=== PATIENT | male | born 1955 | race Caucasian/White ===

== ENCOUNTER → 2017-02-21 | Outpatient (CLI) | payer OTHER, BC ==
--- NOTE | 2017-02-21 09:02 | DIAGNOSTIC IMAGING REPORT ---
LEFT SHOULDER 3 VIEWS HISTORY: M25.512 Chronic left shoulder pain COMPARISON: None. FINDINGS: No acute fracture or dislocation within the left shoulder. Mild AC joint arthrosis. Mild cartilage space narrowing and small marginal osteophytes at the glenohumeral joint. Small amount of calcification the distal supraspinatus tendon. Soft tissues are unremarkable. No radiopaque foreign bodies. IMPRESSION: 1. No acute fracture or dislocation within the left shoulder. 2. Mild osteoarthritis within the left shoulder as described above. 3. Supraspinatus calcific tendinitis. Electronically signed by: Dru Pérez M.D. 02/21/2017 9:01 AM Dictated Date/Time: 02/21/2017 8:56 AM
--- NOTE | 2017-02-21 09:35 | DIAGNOSTIC IMAGING REPORT ---
CERVICAL SPINE 5 VIEWS HISTORY: M25.512 Chronic left shoulder pain [id number] COMPARISON: None. FINDINGS: The cervical spine is visualized from C1 through the superior endplate of T1. There is no fracture. No subluxation. Mild disc space narrowing at C5-C6. Mild to moderate facet osteoarthritis within the cervical spine. This is most pronounced at the C3-C4 levels. This results in [id number] bilateral neural foraminal narrowing at C3-C4. There is also mild right-sided neural foraminal narrowing at C4-C5. Prevertebral soft tissues and the atlantodens interval are intact. IMPRESSION: 1. Mild degenerative disc disease at at C5-C6. 2. Mild/moderate facet osteoarthritis within the cervical spine most pronounced at the C3-C4 levels which results in mild to moderate bilateral neural foraminal narrowing. Electronically signed by: Dru Pérez M.D. 02/21/2017 9:34 AM Dictated Date/Time: 02/21/2017 9:23 AM
== END | disposition home or self-care (01) ==
LOC: C.RADBC 08:14
PROVIDERS: ATTEND Neuromusculoskeletal Medicine & OMM
DX: M19.012 Primary osteoarthritis, left shoulder (principal); M75.32 Calcific tendinitis of left shoulder; M50.322 Other cervical disc degeneration at C5-C6 level

== ENCOUNTER 2017-03-22 14:20 | Emergency (ER) | payer OTHER ==
[~2017-03-22] VITALS: Ht 177.8 cm; Wt 98.0 kg
[2017-03-22 14:35] VITALS: TEMP 36.7; Ht 177.8 cm; Wt 98.0 kg
[2017-03-22] MEDS ORDERED: XYLOCAINE 1%/SOD BICARB 20 ML VIAL INFIL ONE (15:00)
[2017-03-22] MEDS ORDERED: DIPHTHERIA/TETANUS/PERTUSSIS 0.5 ML SYR/VIAL IM. ONE (15:00)
[2017-03-22] MEDS ORDERED: HYZ/10015 PO (15:10)
[2017-03-22] MEDS ORDERED: TRAM-10 PO (15:10)
[2017-03-22] MEDS ORDERED: MELO15TA4 PO (15:10)
[2017-03-22] MEDS ORDERED: CHOL100027 PO (15:10)
--- NOTE | 2017-03-22 16:01 | EMERGENCY ROOM VISIT NOTE ---
ED Visit Note First contact with patient: 14:44 CHIEF COMPLAINT: Left Hand laceration HISTORY OF PRESENT ILLNESS: This 61-year-old male presents the ER with chief complaint of a laceration to the palm of his left hand. The patient states that he was putting up a trash and cut his left hand on a truss [place].. The patient denies any numbness and tingling in his hand. The patient is able to move his fingers without difficulty. The patient's tetanus is not up-to-date. The patient is right-hand dominant. REVIEW OF SYSTEMS: 6 system review was performed and was negative unless stated otherwise in history of present illness. PMH: The patient is healthy; hypertension, shoulder surgery SOCIAL HISTORY: Patient denies tobacco use but admits to occasional alcohol use. PHYSICAL EXAM: Vital Signs: Were reviewed GENERAL: 61-year-old white male appears in no acute distress. MENTAL Status: Alert and oriented 3. Reviewed Nurse's notes. LEFT HAND: There is a 2 cm long laceration on the palmar aspect. The edges are gaping widely apart. There is no foreign material in the wound and it looks clean. There is no active bleeding. No deep structures such as tendons or nerves are seen in the base of the wound. Extension and flexion of the fingers is full and strong. Sensation to pain and light touch is intact. EMERGENCY DEPARTMENT COURSE: The patient was evaluated. The patient was given Adacel IM. Wound Repair: Was performed by the PA student under my direct supervision. Complexity: Basic. Verbal consent was obtained after the risks and benefits were explained, including but not limited to bleeding, scarring, infection, pain, and bone/joint /nerve damage. The skin was prepped with betadine and a sterile field set. The wound was anesthetized with 4.8 ml of 1% buffered lidocaine. With direct pressure the bleeding subsided. Copious irrigation was performed using sterile saline. The wound was explored for foreign bodies and none found. Debridement was not performed. The wound edges were approximated using 5-0 Ethilon with 4 simple interrupted sutures. Hemostasis and excellent approximation was achieved. Antibacterial ointment and a sterile dressing applied. Detailed wound care instructions and signs and symptoms of infection reviewed with the patient. No complications and the patient tolerated the procedure well. DIAGNOSIS: 2 cm left Hand laceration DISCHARGE INSTRUCTIONS & TREATMENT: Keep wound clean and dry. No water on the area for 12-24 hrs then no soaking until sutures removed. Do not allow any crusting or dried blood to accumulate on sutures. If this occurs, use a 1:1 solution of hydrogen peroxide/water on a Q-tip to clean the wound. Use an antibiotic ointment for 3-4 days, then let wound dry. Suture removal in 8 days. Follow up sooner for any signs of infection (increasing redness, swelling , drainage). Ice and elevate for swelling and pain. Tylenol 650 mg every 6 hrs for pain. Current/Historical Medications Scheduled Cholecalciferol (Vitamin D 1000 Unit), 1,000 INTER.UNIT PO DAILY Hctz/Losartan (Hyzaar 25MG/100MG), 1 TAB PO DAILY Meloxicam (Mobic), 15 MG PO DAILY Scheduled PRN Tramadol (Ultram), 50-100 MG PO QID PRN for Pain Allergies Coded Allergies: No Known Allergies (Unverified , 03/22/17) Vital Signs Date Time Temp Pulse Resp B/P (MAP) Pulse Ox O2 Delivery O2 Flow Rate FiO2 03/22/17 14:35 36.7 99 20 144/93 95 Room Air Medications Administered Medications (Trade) Dose Ordered Sig/Omi Route Start Time Stop Time Status Last Admin Dose Admin Diphtheria/ Pertussis/Tetanus Vacc (Adacel Inj) 0.5 ml ONCE ONCE IM. 03/22/17 15:00 03/22/17 15:01 DC 03/22/17 15:22 0.5 ML Departure Information Referrals Lawrence Nelson D.OWaqar (PCP) Patient Instructions [facility]
[2017-03-22 16:08] VITALS: BP 134/78; PULSE 76; O2SAT 99
== END 2017-03-22 16:10 | disposition home or self-care (01) ==
LOC: C.EDB 14:21 → C.EDD 16:10
DX: S61.412A Laceration without foreign body of left hand, initial encounter (principal); W45.8XXA Other foreign body or object entering through skin, initial encounter; Y93.89 Activity, other specified; I10 Essential (primary) hypertension; Z79.899 Other long term (current) drug therapy; Z23 Encounter for immunization

== ENCOUNTER → 2017-04-06 | Outpatient (CLI) | payer OTHER ==
[~2017-04-06] MED LIST: CHOL100027 PO; HYZ/10015 PO; MELO15TA4 PO; TRAM-10 PO
[2017-04-06 11:09] LABS: BASO % 0.5 %; BASO ABS # 0.03 K/uL (0-0.2); EOS % 2.2 %; EOS ABS # 0.13 K/uL (0-0.5); HEMATOCRIT 44.4 % (42-52); HEMOGLOBIN 15.1 g/dL (14.0-18.0); IG# 0.02 K/uL (0.00-0.02); LYMPH % 20.3 %; MEAN CELL VOLUME 89.3 fL (80-100); MEAN CORPUSCULAR HEMOGLOBIN 30.4 pg (25-34); MEAN PLATELET VOLUME 10.7 fL (7.4-10.4); MONO % 9.1 %; MONO ABS # 0.54 K/uL (0.11-0.59); NEUT % 67.6 %; PLATELET COUNT 256 K/uL (130-400); RED CELL DISTRIBUTION WIDTH CV 12.5 % (11.5-14.5); RED CELL DISTRIBUTION WIDTH SD 40.1 fL (36.4-46.3); WHITE BLOOD COUNT 5.92 K/uL (4.8-10.8)
[2017-04-06 11:35] LABS: ALBUMIN 3.8 gm/dl (3.4-5.0); ALT/SGPT 58 U/L (12-78); AST/SGOT 24 U/L (15-37); BLOOD UREA NITROGEN 18 mg/dl (7-18); CALCIUM 8.6 mg/dl (8.5-10.1); CARBON DIOXIDE 32 mmol/L (21-32); CREATININE 0.95 mg/dl (0.60-1.40); GLUCOSE 103 mg/dl (70-99); POTASSIUM 3.9 mmol/L (3.5-5.1); SODIUM 138 mmol/L (136-145)
[2017-04-06 11:38] LABS: ALKALINE PHOSPHATASE 76 U/L (45-117); CHOLESTEROL 184 mg/dl (0-200); LDL CHOLESTEROL CALCULATED 121 mg/dl; TOTAL PROTEIN 7.5 gm/dl (6.4-8.2)
== END | disposition home or self-care (01) ==
LOC: C.LABBC 08:24
PROVIDERS: ATTEND Neuromusculoskeletal Medicine & OMM
DX: Z00.00 Encounter for general adult medical examination without abnormal findings (principal); Z11.59 Encounter for screening for other viral diseases; I10 Essential (primary) hypertension; E78.5 Hyperlipidemia, unspecified; E55.9 Vitamin D deficiency, unspecified; M25.50 Pain in unspecified joint; Z91.89 Other specified personal risk factors, not elsewhere classified

== ENCOUNTER 2020-07-21 05:08 | Observation (INO) ==
--- NOTE | 2020-06-22 14:43 | PAT Medication Instructions ---
Medication Instructions Date of Service June 22, 2020 Home Medications losartan 100 mg-hydrochlorothiazide 25 mg tablet 1 tab PO QPM acetaminophen 1,000 mg PO TID cholecalciferol (vitamin D3) [Vitamin D3] 25 mcg PO QAM cyclobenzaprine 10 mg PO DAILY PRN diclofenac sodium 75 mg PO QPM fluoxetine 10 mg PO QAM glucosamine-chondroitin 2 tab PO QAM multivitamin 1 tab PO QPM ASK your surgeon for instructions diclofenac sodium 75 mg PO QPM STOP taking 2 weeks before surgery (or as soon as possible if surgery is within 2 weeks) glucosamine-chondroitin 2 tab PO QAM DO NOT take the morning of surgery cholecalciferol (vitamin D3) [Vitamin D3] 25 mcg PO QAM cyclobenzaprine 10 mg PO DAILY PRN multivitamin 1 tab PO QPM Take morning of surgery With a small sip of water, OTHERWISE NOTHING TO EAT OR DRINK AFTER MIDNIGHT: acetaminophen 1,000 mg PO TID (okay to take up to 4 hours prior to surgery if needed) fluoxetine 10 mg PO QAM Take evening before surgery losartan 100 mg-hydrochlorothiazide 25 mg tablet 1 tab PO QPM acetaminophen 1,000 mg PO TID cyclobenzaprine 10 mg PO DAILY PRN (if needed) multivitamin 1 tab PO QPM Other Notes If you have any questions please call us at [phone] or [phone] or [phone] or [phone]
--- NOTE | 2020-06-22 14:46 | Anesthesiology Consultation ---
Date of Service June 22, 2020 Assessment & Plan (1) Encounter for pre-operative examination: COVID screening: Per assessment on 06/22: Travel screen negative, no known COVID- 19 positive contacts or current COVID-19 related symptoms. Patient fully vaccinated. Surgeon arranging preop COVID testing. Awaiting results. Chart Review Chart Review: Acceptable Risk for Surgery and Patient seen in Pre Admission Testing Teaching & Discussion Pre-Anesthesia Teaching/Discussion Notes: Instructed NPO after midnight before surgery,except medications with 15 cc of water. Medication instructions provided according to the PAT guidelines. History Surgery Operation Date: 07/21/20 07:15 Proposed Procedures p Left Total Hip Arthroplasty - Marko Tabares MD Height/Weight Height: 5 ft 10 in Weight: 95.1 kg Allergies Allergy/AdvReac Type Severity Reaction Status Date / Time No Known Allergies Allergy Unverified 06/21/20 09:07 Medications Home Medications Medication Instructions Recorded Confirmed Last Taken losartan 100 1 tab PO QPM 01/18/19 06/21/20 Unknown mg-hydrochlorothiazide 25 mg tablet acetaminophen 1,000 mg PO TID 06/21/20 06/21/20 Unknown cholecalciferol (vitamin D3) 25 mcg PO QAM 06/21/20 06/21/20 Unknown [Vitamin D3] cyclobenzaprine 10 mg PO DAILY PRN 06/21/20 06/21/20 Unknown diclofenac sodium 75 mg PO QPM 06/21/20 06/21/20 Unknown fluoxetine 10 mg PO QAM 06/21/20 06/21/20 Unknown glucosamine-chondroitin 2 tab PO QAM 06/21/20 06/21/20 Unknown multivitamin 1 tab PO QPM 06/21/20 06/21/20 Unknown Past Medical History Medical History Hearing deficit slight (R/L) History of melanoma face s/p excision Hypertension Osteoarthritis Exercise / Class Metabolic Activity II 4-5 Yardwork/Stairs/Walk up hill Past Family History Family History Grandfather Myocardial infarction Father Prostate cancer Heart disease Hypertension Denies family history of Ovarian cancer Breast cancer Colorectal cancer Past Surgical History Surgical History History of colonoscopy History of tonsillectomy S/P shoulder surgery Right shoulder reconstruction x5 Past Anesthesia History No Hx of Anesthesia Complications and No Family Hx of Anesthesia Complications History of PONV No Hx of PONV and No Hx of Motion Sickness Social History Smoking Status: Never smoker Do You Dip or Chew Tobacco: No Hx Alcohol Use: Yes Alcohol type: beer and wine alcohol intake frequency: a few times a week Hx Substance Use: No substance use type: does not use Review of Systems Occasional snoring. No witnessed apnea events. Patient denies chest pain, shortness of breath, dyspnea on exertion, fever, chills, cough, wheezing, palpitations. Physical Exam Vital Signs VITALS BP 160/92 P 77 TEMP 98.6 SP02 97%RA RESP 16 PHYSICAL Mildly decrased cervical extension range of motion. Full TMJ range of motion. TMD 3 finger breaths Mallampati Score 3 Dentition: several missing, + bridge (upper right side) Lungs: clear throughout to auscultation Cardiac: regular rate and rhythm, no murmurs noted Spine: normal Carotid arteries: negative bruit Extremities: no edema Testing Laboratory Results 06/22/20 15:15 06/22/20 15:15 PT 10.3 Seconds (9.0-12.0) 06/22/20 15:15 INR 1.0 (0.9-1.1) 06/22/20 15:15 APTT 27.1 Seconds (21.0-31.0) 06/22/20 15:15 Blood Type B Positive 06/22/20 15:15 Antibody Screen NEGATIVE 06/22/20 15:15 Electrocardiogram Date: 06/22/20 Normal sinus rhythm at 70 bpm. Incomplete RBBB. Chest X-Ray Date: 06/22/20 FINDINGS: Cardiac mediastinal and hilar silhouettes are within normal limits. No pneumothorax, pleural effusion, airspace consolidation or overt pulmonary edema. Spondylitic spurring of the spine. IMPRESSION: No acute process.
--- NOTE | 2020-06-22 15:42 | XRay Report ---
XR chest Pre-admission PA/Lat HISTORY: 65 years-old Male pat chronic degenerative joint disease. COMPARISON: None TECHNIQUE: PA and lateral views of the chest FINDINGS: Cardiac mediastinal and hilar silhouettes are within normal limits. No pneumothorax, pleural effusion , airspace consolidation or overt pulmonary edema. Spondylitic spurring of the spine. IMPRESSION: No acute process. ACT 112: Negative or not required by law. The above report was generated using voice recognition software. It may contain grammatical, syntax o r spelling errors. Electronically signed by: Will Benoit M.D. 06/22/2020 3:41 PM
[2020-06-22 16:11] LABS: Basophils # (auto) 0.02 K/uL (0-0.2); Basophils % (auto) 0.4 %; Eosinophils # (auto) 0.12 K/uL (0-0.5); Eosinophils % (auto) 2.4 %; Hemoglobin 14.1 g/dL (14.0-18.0); Immature Granulocytes # (auto) 0.01 K/uL (0.00-0.02); Immature Granulocytes % (auto) 0.2 %; Lymphocytes # (auto) 0.86 K/uL (1.2-3.4); Mean Corpuscular Hemoglobin 29.6 pg (25-34); Mean Corpuscular Hgb Conc 33.6 g/dL (32-36); Mean Corpuscular Volume 88.2 fL (80-100); Mean Platelet Volume 10.7 fL (7.4-10.4); Monocytes # (auto) 0.66 K/uL (0.11-0.59); Neutrophils # (auto) 3.39 K/uL (1.4-6.5); Platelet Count 257 K/uL (130-400); Red Blood Count 4.76 M/uL (4.7-6.1); White Blood Count 5.06 K/uL (4.8-10.8)
[2020-06-22 16:33] LABS: Partial Thromboplastin Time 27.1 Seconds (21.0-31.0); Prothrombin Time 10.3 Seconds (9.0-12.0)
[2020-06-22 16:55] LABS: BUN Creatinine Ratio 19.4 (10-20); Calcium 8.3 mg/dl (8.5-10.1); Creatinine Clr Calc Pharmacy 110.7 ml/min; Est GFR (African American) 110.2; Est GFR (Non-African American) 95.1; Potassium 3.9 mmol/L (3.5-5.1)
--- NOTE | 2020-06-23 06:52 | Electrocardiogram Report ---
Test Reason : Blood Pressure : / mmHG Vent. Rate : 070 BPM Atrial Rate : 070 BPM P-R Int : 164 ms QRS Dur : 106 ms QT Int : 392 ms P-R-T Axes : 061 000 059 degrees QTc Int : 423 ms Normal sinus rhythm Incomplete right bundle branch block Borderline ECG No previous ECGs available Confirmed by Gama Bardales ([id number]) on 06/23/2020 6:52:15 AM Referred By: Marko Tabares Confirmed By:Gama Bardales
--- NOTE | 2020-07-15 21:13 | History and Physical Report ---
DATE OF ADMISSION: 07/21/2020 CHIEF COMPLAINT: Left hip pain. 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 He has got about a 15-month history of increasing left hip pain and discomfort that has gradually gotten worse over time. No particular injury. He felt this first when he was cleaning his attic. He felt he pulled a groin muscle, but never got better. He has been followed and treated by Dr. Petit, he is one of his clients. He has recommended surgery and he now presents for surgical treatment. He has had a couple of cortisone shots, which provided temporary relief only. He has difficulty putting his shoes and socks on. 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 He would like to have his hip fixed. PAST MEDICAL HISTORY: Significant for hypertension. PAST SURGICAL HISTORY: Previous surgeries include multiple surgeries for some AC joint problems. ALLERGIES: None. CURRENT MEDICINES: Include, 1. Tylenol. 2. Diclofenac. 3. Losartan/hydrochlorothiazide. 4. Cosamin DS. 5. Vitamin D. 6. Voltaren. SOCIAL HISTORY: A 65-year-old male. He lives here in [place]. 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 He is . Two drinks per week. Does not smoke. FAMILY HISTORY: Significant for heart disease and diabetes. REVIEW OF SYSTEMS: Negative for diabetes, neurologic problem, vascular problems or bleeding disorders. No chest pain or shortness of breath. No history of DVT or PE. PHYSICAL EXAMINATION: GENERAL: Shows a pleasant, healthy, middle-aged male, looks to be in good health. HEENT: Benign. NECK: Supple, no lymphadenopathy. LUNGS: Clear to auscultation. HEART: Has a regular rate and rhythm. ABDOMEN: Soft, nontender, nondistended. EXTREMITIES: Grossly neurovascularly intact except as follows: Examination of the left hip revealed patient walks with an antalgic gait. He is about 0.5 cm short on the left side compared to the right. He has got marked pain with any type of hip motion. He can internally rotate to neutral and that is it. Negative straight leg raise. Examination of the knee reveals a slight knee effusion. He has got some bony hypertrophy. No tenderness over the medial joint line. X-RAYS: X-rays of the left hip were reviewed. It shows advanced left hip DJD. He has got complete loss of the superior joint space. He has got flattening of his femoral head and cystic changes on both sides of the joint. This has progressed significantly over the past 6 months. 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 He has failed conservative treatment. Clinically and radiographically, this has progressed significantly over the past 6 months. He would like to have his hip fixed. PLAN: We will take him to the operating room and do a left total hip replacement. The risks and benefits of this procedure were explained to the patient including but not limited to DVT, PE, , infection, neurological injury, vascular injury, bleeding problem, pain, limited range of motion, stiffness, failure to relieve his symptoms, incomplete relief of symptoms, need for further surgery in the future, fracture, leg length inequality, need for blood transfusion, etc. The patient understands and desires to proceed. Informed consent was obtained. He did see his medical doctor, Dr. Mcneil, and he has been cleared for surgery. He is planning to be discharged to home using [facility] home health program.
[2020-07-21] MEDS ORDERED: ceFAZolin 2000MG 2,000 MG/15 ML SYR IV SCH (06:00)
[2020-07-21] MEDS ORDERED: METOCLOPRAMIDE HCL 10 MG TABLET PO SCH (06:00)
[2020-07-21] MEDS ORDERED: TRANEXAMIC ACID 1,000 MG **IV Pre-op IV SCH (06:00)
[2020-07-21] MEDS ORDERED: FAMOTIDINE 20 MG TAB PO SCH (06:00)
[2020-07-21] MEDS ORDERED: LR 60ML/HR IV SCH (06:00)
[2020-07-21] MEDS ORDERED: ACETAMINOPHEN 500 MG TAB PO SCH (06:00)
[2020-07-21] MEDS ORDERED: GABAPENTIN 300 MG CAP PO SCH (06:00)
[2020-07-21] MEDS ORDERED: LR 500ML BOLUS, THEN 15ML/HR IV SCH (06:00)
[2020-07-21] MEDS ORDERED: BUPIVACAINE 0.5 % 5 MG/1 ML PF 10ML VIAL ONE (06:31)
[2020-07-21] MEDS ORDERED: BUPIVACAINE 0.25% 30 ML VIAL ONE (06:32)
[2020-07-21] MEDS ORDERED: ATROPINE SULFATE 0.1 MG/ML 10ML SYR IV PRN (06:37)
[2020-07-21] MEDS ORDERED: ONDANSETRON INJ 2 MG/ML 2 ML VIAL IV PRN ×3 (06:37→10:09)
[2020-07-21] MEDS ORDERED: fentaNYL citrate 100 MCG/2 ML VIAL IV PRN (06:37)
[2020-07-21] MEDS ORDERED: ePHEDrine sulfate 50 MG/ML AMP IV PRN ×2 (06:37→06:46)
[2020-07-21] MEDS ORDERED: PROMETHAZINE HCL 12.5 MG in SODIUM CHLORIDE 0.9% 50 ML IV PRN (06:46)
[2020-07-21] MEDS ORDERED: PROPOFOL IV EMULSION 10 MG/ML 20 ML VIAL IV ONE (06:46)
[2020-07-21] MEDS ORDERED: PHENYLEPHRINE 100MCG/ML 5ML SYR ONE (06:46)
[2020-07-21] MEDS ORDERED: LIDOCAINE HCL 2% 2 ML VIAL/AMP(20MG/ML) INFIL ONE (06:46)
[2020-07-21] MEDS ORDERED: NALOXONE HCL 0.08 MG in SYRINGE 1.8 ML IV PRN (06:46)
[2020-07-21] MEDS ORDERED: HYDROmorphone INJ 0.5 MG/0.5 ML SYR IV PRN ×2 (06:46→10:09)
[2020-07-21] MEDS ORDERED: diphenhydrAMINE 50 MG/ML VIAL IV PRN (06:46)
[2020-07-21] MEDS ORDERED: MoRPHine SULFATE PF 1 MG/ML 10 ML AMP/VIAL INT SPINAL ONE (06:46)
[2020-07-21] MEDS ORDERED: LACTATED RINGER'S 500 ML IV PRN (06:46)
[2020-07-21] MEDS ORDERED: NALOXONE HCL 1 MG in SODIUM CHLORIDE 0.9% 1000ML 1,000 ML IV PRN (06:46)
[2020-07-21] MEDS ORDERED: MEPERIDINE HCL 25 MG/ML CARP/VIAL IV PRN (06:46)
[2020-07-21] MEDS ORDERED: ePHEDrine sulfate 50 MG/ML SYR ONE (06:46)
[2020-07-21] MEDS ORDERED: NALOXONE HCL 0.4 MG/1 ML VIAL/CARP IV PRN ×2 (06:46→10:09)
[2020-07-21] MEDS ORDERED: MIDAZOLAM HCL 1 MG/ML 2ML VIAL ONE ×2 (06:47)
[2020-07-21] MEDS ORDERED: fentaNYL citrate 100 MCG/2 ML VIAL ONE (06:47)
--- NOTE | 2020-07-21 06:55 | History & Physical Bridge Note ---
Date of Service July 21, 2020 History & Physical Bridge Note I have examined the patient, reviewed the History & Physical and in the interval since the performance of the History & Physical I have noted the following changes of clinical significance: no changes noted
[2020-07-21] MEDS ORDERED: BUPIVACAINE/EPINEPHRINE 0.5% MPF 1:200,000 30 ML VIAL ONE (06:59)
[2020-07-21] MEDS ORDERED: SODIUM CHLORIDE 0.9% 1000ML 1,000 ML IV SCH (07:00)
[2020-07-21] MEDS ORDERED: NO NARCOTICS OR SEDATIVES SCH (07:00)
[2020-07-21] MEDS ORDERED: DC INTRASPINAL MORPHINE SCH (07:00)
--- NOTE | 2020-07-21 09:07 | Operative Report ---
Post Operative Report Pre & Post Diagnosis Operation Date: 07/21/20 07:15 Pre-Op Diagnosis: Left Hip Osteoarthritis Post-Op Diagnosis: Left Hip Osteoarthritis I identified the patient and participated in the time-out.: Yes Procedure Operation Date: 07/21/20 07:15 Actual Procedures p Left Total Hip Arthroplasty(Left) - Marko Tabares MD Surgeon Marko Tabares MD Agricultural Equipment Sales Engineer VITALY Hurtado Estimated Blood Loss 200 Findings Consistent with Post-Op Diagnosis Operative findings were advanced left hip DJD. Grade 4 tuvy-bj-deer disease of the femoral head and acetabulum with some collapse of the femoral head. Moderate-sized joint effusion. He had osteophytes on both sides of the joint. Moderate synovitis. Fluids 2000 cc Specimens Left femoral head sent for pathology. Drains None. 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 X-rays show pro gressive hip arthritis and collapse of the femoral head. He failed all conservative measures and elected proceed with total hip arthroplasty. Description of Procedure Operative implants consisted of: 1. Biomet G7 size 56 mm acetabular shell. 2. 6.5 cancellous acetabular screws 135 mm length 125 mm length. 3. Skipwith hole hospice chaplain. 4. Highly cross-linked polyethylene liner with a 56 mm outer diameter, 36 mm diameter with a landry placed inferior and posterior. 5. Philo Karaya size 11 KLA femoral stem. 6. +5/36 mm ceramic articular ball. The patient was taken to the operating, identified, placed on the operating table supine position but a contractors were properly padded. IV antibiotics tried by anesthesia team. A spinal anesthetic been implemented holding area. Zelaya cath was placed in sterile fashion. Patient then placed in the right lateral decubitus position. Axillary roll was placed. Stulberg hip positioner was used for positioning. The left hip and leg were then prepped and draped in usual sterile fashion. A posterior lateral approach to the left hip was then performed to a curvilinear incision centered over the greater trochanter. Sharp dissection got through subcutaneous tissue down to the IT band gluteal fascia the IT band gluteal fascia incised longitudinally in line with skin incision. The underlying great er bursa was excised. Piriformis and external rotators were tagged and taken off the posterior aspect hip joint capsule. Great care was taken throughout the procedure to protect the sciatic nerve at all times. Posterior capsulotomy was then performed leaving a large flap for later repair. Hip was internally rotated and dislocated. Femoral neck osteotomy cut was made with Final Cut about 10 mm above the lesser trochanter. Femoral head was removed and sent for pathology. The femur was retracted anteriorly. Attention drawn the acetabulum. The acetabular labrum was excised. The pulmonary fat was excised. Sequential reaming the acetabular was then performed begin with a size 47 and progressed up to a 55. I did reamed a little bit with a 56 reamer. A 56 mm Biomet G7 acetabular shell was then placed in about 40 degrees lateral opening and 20 degrees of anteversion. Was fixed with two 6.5 cancellous acetabular screws. Some anterior osteophytes were removed. A trial liner was placed. Attention drawn the femur. The proximal femur was entered with a cookie-cutter followed by canal finder. I then broached begin the size 8 and progressed up to 11. He had a very good cancellous bone structure. It is possible he could have broached a little bit more but I felt his cancellous bone was very supportive and did not need to further broaching. The calcar reamer was used smooth and off the calcar. Then trialed the hip and the +5 articular ball recreated leg lengths appropriate, soft tissue tension appropriately, and was stable in full extension and external rotation flexion to 9 degrees internal rotation of 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 Attention drawn toward placing the permanent implants. All trial implants were removed. An apex hole hospice chaplain was placed but highly cross-linked polyethylene liner was placed. I did place a liner with a landry placed inferior and posterior. A DePuy size 11 KLA femoral stem was impacted in position. +5/36 mm ceramic articular ball was placed and hip was located. Hip was stable. Attention drawn toward closing. The wound was irrigated cups ounce of pulsatile lavage solution. I did inject locally with 60 cc of half percent Marcaine with epinephrine. The posterior capsule and external rotators then repaired through drill holes in the posterior trochanter with #2 Tycron suture. The IT band gluteal fascia then closed with #1 PDS suture running fashion. Subcutaneous tissues were then closed in 2 layers with a deep layer #1 Vicryl suture subcutaneous tissues with 2-0 Dexon suture in a buried interrupted fashion for skin was closed skin malathi. Leg was then cleaned dried and a sterile dressing both Xeroform, 4 x 4's, ABD pad, foam tape was applied. Patient then transferred to the recovery room in stable condition. Patient tolerated procedure well and there were no complications. Willy Hurtado, my physician document control assistant, was present for the entire procedure. His assistance was essential and required for appropriate patient positioning, prepping and draping, surgical exposure, performing the technical details of the operation, placement the implants, closure of the wound, and placement of the sterile bandage. I attest to the content of the Intraoperative Record and any orders documented therein. Any exceptions are noted below.
--- NOTE | 2020-07-21 09:34 | XRay Report ---
XR hip 1V LT w pelvis HISTORY: 65 years-old Male IN PACU - A/P PELVIS and LATERAL HIP left hip total joint arthroplasty COMPARISON: Hip radiographs 06/02/2020 TECHNIQUE: AP view of the pelvis with crosstable lateral view of the left hip FINDINGS: Mild to moderate right hip osteoarthritis. Left hip total joint arthroplasty. Lateral skin malathi ar e noted along with expected postsurgical soft tissue swelling and deep tissue air. No acute fracture or unexpected opaque foreign body. IMPRESSION: Left hip total joint arthroplasty with expected postoperative changes. ACT 112: Negative or not required by law. The above report was generated using voice recognition software. It may contain grammatical, syntax o r spelling errors. Electronically signed by: John Benoit M.D. 07/21/2020 9:33 AM
[2020-07-21] MEDS ORDERED: TAMSULOSIN HCL 0.4 MG CAP PO PRN (10:09)
[2020-07-21] MEDS ORDERED: MULTIVITAMIN TAB PO SCH (10:09)
[2020-07-21] MEDS ORDERED: bisacodyL 10 MG SUPP PR PRN (10:09)
[2020-07-21] MEDS ORDERED: MAGNESIUM HYDROXIDE SUSP 30 ML UDC PO PRN (10:09)
[2020-07-21] MEDS ORDERED: ALUMINUM/MAGNESIUM SUSP 30 ML UDC PO PRN (10:09)
[2020-07-21] MEDS ORDERED: traMADol HCL 50 MG TABLET PO PRN (10:09)
[2020-07-21] MEDS ORDERED: METOCLOPRAMIDE HCL INJ 5 MG/ML 2 ML VIAL IV PRN (10:09)
[2020-07-21] MEDS: ASPIRIN 81 MG ECTAB PO SCH ×2 (12:09→20:05)
[2020-07-21] MEDS: SODIUM CHLORIDE 0.9% 1000ML 1,000 ML IV SCH ×2 (12:10→21:51)
[2020-07-21] MEDS: DOCUSATE SODIUM 100 MG CAP PO SCH ×2 (12:10→20:09)
[2020-07-21] MEDS ORDERED: FLUoxetine HCL 10 MG CAP PO PRN (12:51)
--- NOTE | 2020-07-21 13:22 | Anesthesiology Progress Note ---
Date of Service July 21, 2020 Anesthesia Post Procedure Vital Signs Vital Signs: Temp Pulse Pulse Pulse Resp BP BP 07/21/20 12:56 36.5 C 84 16 150/84 H 07/21/20 11:58 36.5 C 74 16 136/84 07/21/20 10:50 16 07/21/20 10:47 36.8 C 68 16 163/101 H 07/21/20 10:17 36.1 C L 71 18 166/92 H 07/21/20 09:43 36.4 C L 67 16 143/81 H 07/21/20 09:25 66 14 121/68 07/21/20 09:15 36.4 C L 71 14 119/70 07/21/20 09:05 73 14 118/64 07/21/20 08:55 76 14 113/66 07/21/20 08:47 36.2 C L 80 14 106/64 07/21/20 05:52 36.8 C 76 18 152/94 H Pulse Ox 07/21/20 12:56 96 07/21/20 11:58 97 07/21/20 10:50 97 07/21/20 10:47 100 07/21/20 10:17 100 07/21/20 09:43 99 07/21/20 09:25 99 07/21/20 09:15 96 07/21/20 09:05 100 07/21/20 08:55 99 07/21/20 08:47 100 07/21/20 05:52 99 Pain Intensity Left Knee: Pain Intensity: 8 Transfer of Care Handoff Completed per policy Notes Mental Status: alert / awake / arousable and participated in evaluation Patient Amnestic to Procedure: Yes Nausea / Vomiting: adequately controlled Pain: adequately controlled Airway Patency, RR, SpO2: stable & adequate BP & HR: stable & adequate Hydration State: stable & adequate Neuraxial Anesthesia: was administered and sensory block is resolving Anesthetic Complications: no major complications apparent and Pt Satisfied with anesthetic care
[2020-07-21] MEDS: KETOROLAC TROMETHAMINE 15 MG/ML VIAL IV SCH ×2 (14:07→18:48)
[2020-07-21] MEDS: ceFAZolin 2000MG 2,000 MG/15 ML SYR IV SCH ×2 (14:07→21:47)
[2020-07-21] MEDS: ACETAMINOPHEN 500 MG TAB PO SCH ×2 (14:07→20:06)
[2020-07-21] MEDS ORDERED: TRANEXAMIC ACID / 0.7% NACL 1,000 MG/100 ML BAG IV SCH (14:55)
[2020-07-21] MEDS: ASCORBIC ACID 500 MG TAB PO SCH (17:23)
[2020-07-21] MEDS: SENNA 8.6 MG TAB PO SCH (20:04)
[2020-07-21] MEDS: MULTIVITAMIN TAB PO SCH (20:05)
[2020-07-21] MEDS: LOSARTAN/HCTZ 50/12.5MG TAB PO SCH (20:05)
[2020-07-22] MEDS: KETOROLAC TROMETHAMINE 15 MG/ML VIAL IV SCH ×4 (01:10→18:57)
[2020-07-22 05:53] LABS: Basophils # (auto) 0.01 K/uL (0-0.2); Basophils % (auto) 0.1 %; Eosinophils # (auto) 0.08 K/uL (0-0.5); Hematocrit (blood only) 35.1 % (42-52); Hemoglobin 11.4 g/dL (14.0-18.0); Immature Granulocytes # (auto) 0.01 K/uL (0.00-0.02); Immature Granulocytes % (auto) 0.1 %; Lymphocytes # (auto) 1.15 K/uL (1.2-3.4); Lymphocytes % (auto) 14.1 %; Mean Corpuscular Hemoglobin 29.2 pg (25-34); Mean Corpuscular Hgb Conc 32.5 g/dL (32-36); Mean Corpuscular Volume 89.8 fL (80-100); Mean Platelet Volume 10.1 fL (7.4-10.4); Monocytes # (auto) 1.16 K/uL (0.11-0.59); Monocytes % (auto) 14.2 %; Neutrophils # (auto) 5.75 K/uL (1.4-6.5); Neutrophils % (auto) 70.5 %; Platelet Count 201 K/uL (130-400); RDW Standard Deviation 42.6 fL (36.4-46.3); Red Blood Count 3.91 M/uL (4.7-6.1); White Blood Count 8.16 K/uL (4.8-10.8)
[2020-07-22 06:18] LABS: Calcium 7.9 mg/dl (8.5-10.1); Creatinine Clr Calc Pharmacy 115.4 ml/min; Est GFR (African American) 112.7 ml/min; Est GFR (Non-African American) 97.2 ml/min; Potassium 3.4 mmol/L (3.5-5.1)
--- NOTE | 2020-07-22 07:13 | Orthopedic Progress Note ---
Date of Service July 22, 2020 Assessment & Plan (1) Status post total hip replacement, left: He was seen and examined by Dr. Tabares. Continue PT/OT. WBAT. total hip precautions. Contnue dvt prophylaxis. We will see how he does with PT today and possibly discharge home today with home health. Subjective .POD #1 from left FROY. He's doing pretty well. Pain is about 2 or 3 out of 10. No chest pain or shortness of breath. Review of Systems All systems reviewed & are unremarkable except as noted in HPI & below. Physical Exam .Alert and oriented. NAD. VSS Left leg: well aligned. Able to dorsiflex and planarflex. NVI. Hip located. Results & Data Results & Data Laboratory Results . Diagnostic Findings . PG Care Time/CCT Total # of Minutes Spent Total Time Spent with Patient: Total time spent is greater than 50% in coordination of care (as documented) at patient's floor/unit and/or counseling patient: Coding Level of Care Code 81375 Post Operative Follow-Up Diagnoses Status post total hip replacement, left Z96.642
[2020-07-22] MEDS ORDERED: POTASSIUM CHLORIDE CRTAB 20 MEQ TABCR PO ONE (07:26)
[2020-07-22] MEDS ORDERED: dexAMETHasone 4 MG TAB PO SCH (08:00)
[2020-07-22] MEDS: ASPIRIN 81 MG ECTAB PO SCH ×2 (08:09→20:23)
[2020-07-22] MEDS: DOCUSATE SODIUM 100 MG CAP PO SCH ×2 (08:09→20:33)
[2020-07-22] MEDS: CHOLECALCIFEROL 1,000 UNITS 25 MCG TAB PO SCH (08:09)
[2020-07-22] MEDS: ACETAMINOPHEN 500 MG TAB PO SCH ×3 (08:09→20:22)
[2020-07-22] MEDS: ASCORBIC ACID 500 MG TAB PO SCH ×2 (08:09→17:18)
[2020-07-22] MEDS ORDERED: CYCLOBENZAPRINE HCL 10 MG TAB PO PRN (09:00)
[2020-07-22] MEDS: LOSARTAN/HCTZ 50/12.5MG TAB PO SCH (20:15)
[2020-07-22] MEDS: MULTIVITAMIN TAB PO SCH (20:15)
[2020-07-22] MEDS: SENNA 8.6 MG TAB PO SCH (20:23)
[2020-07-23] MEDS: KETOROLAC TROMETHAMINE 15 MG/ML VIAL IV SCH ×2 (02:08→06:36)
[2020-07-23 06:10] LABS: BUN Creatinine Ratio 24.1 (10-20); Calcium 8.7 mg/dl (8.5-10.1); Creatinine Clr Calc Pharmacy 112.2 ml/min; Est GFR (African American) 111.4 ml/min; Est GFR (Non-African American) 96.1 ml/min; Potassium 3.7 mmol/L (3.5-5.1)
--- NOTE | 2020-07-23 07:40 | Progress Notes ---
DATE: 07/23/2020 SUBJECTIVE: A 65-year-old gentleman postop day 2 from left hip replacement. He is doing quite a bit better this morning. He has got up in the middle of the night and took a walk. No chest pain or shortness of breath. Not feeling dizzy or lightheaded. OBJECTIVE: VITAL SIGNS: Temperature 36.7. Vital signs stable. GENERAL: Shows a pleasant, middle-aged male. I had to wake him this morning. EXTREMITIES: Examination of the left hip reveals the dressing to be clean, dry and intact. Minimal swelling. Thigh is soft and supple. Leg lengths are equal. Hip is located. He is neurologically intact. ASSESSMENT: A 65-year-old gentleman postoperative day 2 from left hip replacement, doing better. Pain is controlled. Hip is located. He is neurologically intact. PLAN: 1. DVT prophylaxis including thigh-high TEDs, SCDs, and aspirin twice a day. 2. PT/OT. Weight bear as tolerated. Left total hip protocol. 3. Pain control, doing well with current pain regimen. 4. Disposition: Plan to discharge to home after therapy this morning with some home health.
[2020-07-23] MEDS: ACETAMINOPHEN 500 MG TAB PO SCH (09:05)
[2020-07-23] MEDS: CHOLECALCIFEROL 1,000 UNITS 25 MCG TAB PO SCH (09:05)
[2020-07-23] MEDS: DOCUSATE SODIUM 100 MG CAP PO SCH (09:05)
[2020-07-23] MEDS: ASPIRIN 81 MG ECTAB PO SCH (09:05)
[2020-07-23] MEDS: ASCORBIC ACID 500 MG TAB PO SCH (09:05)
== END 2020-07-23 12:00 | disposition home health service (06) ==
LOC: ASU 05:08 → 3E 05:08
DX: Z79.899 Other long term (current) drug therapy; I10 Essential (primary) hypertension; Z20.822 Contact with and (suspected) exposure to COVID-19; M16.12 Unilateral primary osteoarthritis, left hip

== ENCOUNTER 2021-10-04 08:12 | Observation (INO) ==
--- NOTE | 2021-09-07 14:29 | PAT Medication Instructions ---
Medication Instructions Date of Service September 07, 2021 Home Medications Medication Instructions Recorded amoxicillin 500 mg tablet 2,000 mg PO ONCE #4 tab 10/14/20 losartan 100 mg-hydrochlorothiazide 25 mg tablet 1 tab PO HS acetaminophen 500 mg tablet 1,000 mg PO TID MDD pain cholecalciferol (vitamin D3) 25 mcg (1,000 unit) tablet (Vitamin D3) 25 mcg PO HS glucosamine-chondroitin 750 mg-600 mg tablet 1 tab PO HS multivitamin 1 tab PO HS amoxicillin 500 mg tablet 2,000 mg PO ONCE ibuprofen 200 mg tablet 200 mg PO Q6H PRN Continue as directed amoxicillin 500 mg tablet 2,000 mg PO ONCE (if needed prior to dental work) ASK your surgeon for instructions ibuprofen 200 mg tablet 200 mg PO Q6H PRN STOP taking 2 weeks before surgery (or as soon as possible if surgery is within 2 weeks) glucosamine-chondroitin 750 mg-600 mg tablet 1 tab PO HS Take morning of surgery With a small sip of water, OTHERWISE NOTHING TO EAT OR DRINK AFTER MIDNIGHT: acetaminophen 500 mg tablet 1,000 mg PO TID MDD pain (if needed) Take evening before surgery losartan 100 mg-hydrochlorothiazide 25 mg tablet 1 tab PO HS acetaminophen 500 mg tablet 1,000 mg PO TID MDD pain (if needed) cholecalciferol (vitamin D3) 25 mcg (1,000 unit) tablet (Vitamin D3) 25 mcg PO HS multivitamin 1 tab PO HS Other Notes If you have any questions please call us at [phone] or [phone] or [phone] or [phone]
--- NOTE | 2021-09-09 10:37 | Anesthesiology Consultation ---
Date of Service September 09, 2021 Assessment & Plan (1) Encounter for pre-operative examination: - COVID screening: Per assessment on 09/09: No known COVID-19 positive contacts or current COVID-19 related symptoms. Travel screen- negative x2+ weeks. Patient vaccinated. Surgeon arranging preop COVID testing. Awaiting results. - S/P Left FROY (07/21/20): SAB at [facility] Chart Review Chart Review: Acceptable Risk for Surgery and Patient seen in Pre Admission Testing Teaching & Discussion Pre-Anesthesia Teaching/Discussion Notes: Instructed NPO after midnight before surgery,except medications with 15 cc of water. Medication instructions provided according to the PAT guidelines. History Surgery Operation Date: 10/04/21 12:30 Proposed Procedures p Right Total Knee Replacement - Marko Tabares MD Height/Weight Height: 5 ft 10 in Weight: 99.2 kg Allergies Allergy/AdvReac Type Severity Reaction Status Date / Time No Known Allergies Allergy Verified 09/07/21 13:21 Medications Home Medications Medication Instructions Recorded Confirmed Last Taken losartan 100 1 tab PO HS 01/18/19 09/07/21 07/20/20 21:00 mg-hydrochlorothiazide 25 mg tablet acetaminophen 500 mg tablet 1,000 mg PO TID MDD pain 06/21/20 09/07/21 07/20/20 21:00 cholecalciferol (vitamin D3) 25 25 mcg PO HS 06/21/20 09/07/21 06/14/20 08:00 mcg (1,000 unit) tablet (Vitamin D3) glucosamine-chondroitin 750 mg-600 1 tab PO HS 06/21/20 09/07/21 06/13/20 20:00 mg tablet multivitamin 1 tab PO HS 06/21/20 09/07/21 06/13/20 08:00 amoxicillin 500 mg tablet 2,000 mg PO ONCE #4 tab 10/14/20 09/07/21 Unknown ibuprofen 200 mg tablet 200 mg PO Q6H PRN 09/07/21 09/07/21 Unknown Past Medical History Medical History Hearing deficit Mild (R/L) History of melanoma Face s/p excision Hypertension Osteoarthritis Exercise / Class Metabolic Activity II 4-5 Yardwork/Stairs/Walk up hill (one FS (no CP, no SOB)) Past Family History Family History Grandfather Myocardial infarction Father Prostate cancer Heart disease Hypertension Denies family history of Ovarian cancer Breast cancer Colorectal cancer Past Surgical History Surgical History History of anesthesia reaction Post-op nausea and dizziness the day after hip surgery History of colonoscopy History of tonsillectomy Hx of total hip arthroplasty Left FROY (07/21/20): SAB at [facility] S/P shoulder surgery Right shoulder reconstruction x5 Past Anesthesia History No Family Hx of Anesthesia Complications and Other (Post-op nausea and dizziness the day after hip surgery (also nauseous after remote shoulder surgery)) History of PONV No Hx of Motion Sickness and History of PONV (post-op nausea) Social History Smoking Status: Never smoker Do You Dip or Chew Tobacco: No Hx Alcohol Use: Yes Alcohol type: wine alcohol intake frequency: a few times a week Hx Substance Use: No substance use type: former substance user and marijuana Last Used Substance Other:: 45 years ago Review of Systems Patient denies chest pain, shortness of breath, dyspnea on exertion, fever, chills, cough, wheezing, palpitations. Physical Exam Vital Signs VITALS BP 156/95 P 68 TEMP 98.5 SP02 98%RA RESP 16 PHYSICAL Full cervical extension range of motion. Full TMJ range of motion. TMD 4 finger breaths Mallampati Score 2 Dentition: several missing (molars), + bridge (right upper side) Lungs: clear throughout to auscultation Cardiac: regular rate and rhythm, no murmurs noted Spine: normal Carotid arteries: negative bruit Extremities: no edema Lab Results Anesthesia Preop Results Results Anesthesia Widget: WBC 4.93 K/uL (4.8-10.8) 09/09/21 Hgb 14.5 g/dL (14.0-18.0) 09/09/21 Hct 43.3 % (42-52) 09/09/21 Plt 253 K/uL (130-400) 09/09/21 Na 139 mmol/L (136-145) 09/09/21 K 4.2 mmol/L (3.5-5.1) 09/09/21 Cl 104 mmol/L (98-107) 09/09/21 CO2 31 mmol/L (21-32) 09/09/21 BUN 19 mg/dl (6-23) 09/09/21 Creat 0.80 mg/dl (0.6-1.4) 09/09/21 Glucose Level 80 mg/dl (70-99(Fasting)) 09/09/21 PT 10.5 Seconds (9.0-12.0) 09/09/21 PTT 27.3 Seconds (21.0-31.0) 09/09/21 INR 1.0 (0.9-1.1) 09/09/21 Blood Type B Positive 09/09/21 Antibody Screen NEGATIVE 09/09/21 Testing Electrocardiogram Date: 09/09/21 Findings: + NSR @ (65) Chest X-Ray Date: 09/09/21 Findings: + NAD
--- NOTE | 2021-10-01 10:47 | History and Physical Report ---
CHIEF COMPLAINT: Persistent right knee pain and discomfort. HISTORY OF PRESENT ILLNESS: The patient is a 66-year-old gentleman who presents for surgical treatme nt of his right knee. He has got a long history of right knee pain and discomfort, which is initiall y followed by Dr. Petit at [facility]. I recently did a left hip replacement on him just about a year ago and he has recovered from this quite nicely. He continues to be bothered by ri ght knee pain. He has been through extensive conservative treatment including steroid shots and visc osupplementation, which have become less successful over time. The gel shot did not help much at all . Pain is global. It is increased with weightbearing. He would like to get his knee fixed. PAST MEDICAL HISTORY: 1. Hypertension. 2. Mild obesity with BMI of 32. 3. Osteoarthritis. PAST SURGICAL HISTORY: Includes: 1. Left total hip replacement done on 07/21/2020. 2. Shoulder surgery 25 years ago. ALLERGIES: None. CURRENT MEDICATIONS: Include: 1. Tylenol. 2. Vitamin D3. 3. Diclofenac. 4. Fluoxetine. 5. Glucosamine. 6. Losartan/hydrochlorothiazide. 7. Multivitamin. 8. Tramadol. SOCIAL HISTORY: A 66-year-old male. 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 He is . Three drinks per week . Does not smoke. FAMILY HISTORY: Noncontributory. REVIEW OF SYSTEMS: Negative for diabetes, neurologic problem, vascular problem, or bleeding disorder s. No chest pain or shortness of breath. No history of DVT or PE. No known bleeding problems. PHYSICAL EXAMINATION: GENERAL: Shows a pleasant middle-aged male. Looks to be in good health. HEENT: Benign. NECK: Supple. No lymphadenopathy. LUNGS: Clear to auscultation. HEART: Regular rate and rhythm. ABDOMEN: Soft, nontender, nondistended. EXTREMITIES: Grossly neurovascularly intact, except as follows: Examination of the right knee revea ls the patient walks with just a slight bit of a limp. He is tender with medial joint line. He has got varus deformity to his knee. Small knee effusion. Range of motion 5-125. No instability. No p ain with hip motion. X-RAYS: X-rays of the right knee were reviewed. It shows advanced medial compartment arthritis. He has got complete loss of his medial joint space. He has got osteophytes medially as well as subchon dral sclerosis. ASSESSMENT: A 66-year-old gentleman status post left hip replacement little over a year ago with adv anced right knee degenerative joint disease. He has failed conservative treatment and would like to have his right knee replaced. PLAN: We will take him to the operating room and do a right knee replacement. The risks and benefit s of this procedure were explained to the patient and include, but not limited to DVT, PE, , inf ection, neurological injury, vascular injury, bleeding problem, pain, limited range of motion, stiffn ess, failure to relieve symptoms, incomplete relief of symptoms, need for further surgery in the futu re, etc. The patient understands and desires to proceed. Informed consent was obtained. He is planning to be discharged to home using [facility]/PT. Job ID: [id number]
[~2021-10-04 08:12] MED LIST changes: +ACETAMINOPHEN 500 MG TAB PO SCH; +BUPIVACAINE 0.5 % 5 MG/1 ML PF 10ML VIAL ONE; +BUPIVACAINE LIPOSOME/PF 266 MG, BUPIVACAINE/EPINEPHRINE 50 ML, SODIUM CHLORIDE 0.9% 30 ... INFIL SCH; -CHOL100027 PO; +CeleBREX 200 MG CAP PO SCH; +FAMOTIDINE 20 MG TAB PO SCH; -HYZ/10015 PO; +LR 500ML BOLUS, THEN 15ML/HR IV SCH; +LR 60ML/HR IV SCH; -MELO15TA4 PO; +METOCLOPRAMIDE HCL 10 MG TABLET PO SCH; +ROPIVACAINE 0.5% 5 MG/ML 30 ML VIAL ONE; +Scopolamine 1 MG TDSY TD SCH; -TRAM-10 PO; +TRANEXAMIC ACID 1,000 MG **IV Pre-op IV SCH; +ceFAZolin 2000MG 2,000 MG/15 ML SYR IV SCH
--- NOTE | 2021-10-04 08:55 | History & Physical Bridge Note ---
Date of Service October 04, 2021 History & Physical Bridge Note I have examined the patient, reviewed the History & Physical and in the interval since the performance of the History & Physical I have noted the following changes of clinical significance: no changes noted
[2021-10-04] MEDS ORDERED: MIDAZOLAM HCL 1 MG/ML 2ML VIAL ONE (09:50)
[2021-10-04] MEDS ORDERED: ePHEDrine sulfate 50 MG/ML AMP IV PRN (10:12)
[2021-10-04] MEDS ORDERED: fentaNYL citrate 100 MCG/2 ML VIAL IV PRN (10:12)
[2021-10-04] MEDS ORDERED: HYDROmorphone INJ 2 MG/ML SYR/VIAL IV PRN (10:12)
[2021-10-04] MEDS ORDERED: ATROPINE SULFATE 0.1 MG/ML 10ML SYR IV PRN (10:12)
[2021-10-04] MEDS ORDERED: ONDANSETRON INJ 2 MG/ML 2 ML VIAL IV PRN ×2 (10:12→15:39)
[2021-10-04] MEDS ORDERED: BUPIVACAINE/EPINEPHRINE 0.25% 1:200,000 30 ML VIAL ONE (10:50)
[2021-10-04] MEDS ORDERED: SODIUM CHLORIDE 0.9% PF 50 ML VIAL ONE (10:51)
[2021-10-04] MEDS ORDERED: BUPIVACAINE LIPOSOME 1.3% 266 MG/20 ML VIAL ONE (10:51)
[2021-10-04] MEDS ORDERED: PROPOFOL IV EMULSION 10 MG/ML 20 ML VIAL IV ONE ×3 (10:59→12:32)
--- NOTE | 2021-10-04 13:15 | Operative Report ---
PG Post Operative Report Pre & Post Diagnosis Operation Date: 10/04/21 10:40 Pre-Op Diagnosis: Advanced right knee degenerative joint disease Post-Op Diagnosis: Advanced right knee degenerative joint disease I identified the patient and participated in the time-out.: Yes Procedure Operation Date: 10/04/21 10:40 Actual Procedures p Right Total Knee Replacement - Marko Tabares MD Surgeon Marko Tabares MD Cardiology Nurse Practitioner Willy Hurtado PA-C Estimated Blood Loss 50 Findings Consistent with Post-Op Diagnosis Operative findings revealed advanced right knee medial compartment DJD with extensive grade 4 [id number] disease of the medial compartment. He had a varus deformity to his knee and a slight flexion contracture. Osteophytes primarily medially. Some grade 3 changes of the patellofemoral joint. The lateral compartment was pretty well spared. 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 Been through extensive conservative treatment which became less successful over time. He is elected proceed with total knee replacement. Description of Procedure Operative implants consist of: 1. Biomet Vanguard size 70 right posterior stabilized femoral component. 2. Biomet size 75 tibial tray. 3. 12 mm posterior stabilized polyethylene insert. 4. 34 x 8 and half all Paller patella. The patient was taken the operating, identified, placed on the operating table supine position protectors were properly padded. IV antibiotics tried by anesthesia team. A spinal anesthetic had been implemented in the holding area along with an abductor canal block. A Zelaya catheter was placed in sterile fashion. A right thigh turn was then placed in the right lower extremities and prepped and draped in usual sterile fashion. The right leg was elevated exsanguinated with use of an Esmarch in terms playset 300 mmHg. An anterior approach to the right knee was then performed to longitudinal incision centered over the patella. Sharp dissection was carried through subcutaneous tissue down the extensor mechanism. A medial parapatellar arthrotomy incision was made. Some subperiosteal dissection was carried out me dially. The fat pad was resected from Neath patella tendon. Lateral patellofemoral ligament was released. Patella subluxated laterally and the knee was flexed. The osteophytes were taken off the distal femur. The ACL and PCL were then released from distal femur the tibia subluxated anteriorly. The external tibial alignment jig was then placed in the interface the tibia and adjusted 14 mm medially. Proximal tibial cut was made removed by millimeter of bone from most deficient aspect medial tibial plateau. Tamoxifen sites were taken off medial and posterior medially. Tibia sized to a size 75. Attention drawn the femur. The distal femur examined the sharp drill bit intramedullary canal was suction. A right 6 degree valgus cutting guide was placed. The distal femoral cutting block was pinned in place. Distal femoral cut was made to take an additional 3 mm bone off distal femur. The femur was then sized to a size 70. We did downsize this quite a bit as it was in between sizes. The AP cutting block was pinned parallel to the epicondylar axis which was 4 degrees of external rotation. Anterior cut, anterior chamfer, posterior cut, posterior chamfer cuts were made. The box cutting guide was placed in just slight lateral box cut was made. The knee was flexed. The remnants of the medial and lateral menisci were excised. The osteophytes were taken off the posterior aspect of femur. A trial femoral component was placed. The tibial tray was pinned in maximum external rotation and the drill and stem punch used to create defect in proximal tibia for the tibial tray. Knee was then trialed and the 12 mm insert fit most appropriately. Attention drawn the patella. The patella was cleaned of all soft tissues. Patella thickness measured 26 mm in thickness was cut down to 15. Was sized to a size 34 patella. The lug holes were drilled for 34 patella. The lateral osteophyte was removed. Patella button was placed. Knee was taken through range of motion patella tracked nicely with no thumbs test. Attention drawn to placing permanent components. Nupathe all trial components were removed. Bone plug was placed in the distal femur limit blood loss. A double batch Palacos G cement was mixed. A Biomet Vanguard size 70 right posterior stabilized femoral component, a size 75 tibial tray, a 12 mm posterior stabilized polyethylene insert, and a 34 x 8 and half all Paller patella were then cemented in place. Knee was brought out into full extension total cement hardened. Final cement check was then performed. The pericapsular tissues were injected with total of 100 cc of combination of 20 cc of Exparel, 30 cc normal saline, 50 cc of quarter percent Marcaine with epinephrine. Patient did receive 1 g tranexamic acid per the tech was then let down for final turn time of 60 minutes. Hemostasis surgeons electrocautery. Extensor mechanism closed with combination 1 PDS suture #1 Vicryl suture in [id number] fashion. Extensor mechanism checked found to be intact. Subcutaneous tissue then closed with 2 Dexon suture in a buried interrupted fashion. Skin was closed skin malathi. Leg was then cleaned and dried and sterile dressed with Xeroform, 4 x 4's, sterile cast padding, Ino bandage were applied. Patient then transferred to the recovery room in stable condition. Patient tolerated procedure well and there were no complications. Willy Hurtado, my physician assistant bookkeeper, was present for the entire procedure. His assistance was essential and required for appropriate patient positioning, prepping and draping, surgical exposure, performing the technical details of the operation, placement the implants, closure of the wound, and placement of the sterile bandage. I attest to the content of the Intraoperative Record and any orders documented therein. Any exceptions are noted below.
--- NOTE | 2021-10-04 13:57 | XRay Report ---
XR knee RT 1 or 2V routine CLINICAL HISTORY: Surgical Post Op. Status post total knee replacement COMPARISON STUDY: 04/19/2020 TECHNIQUE: 2 right knee views FINDINGS: The patient is status post total knee replacement. The prosthetic components are in anatomi c alignment with no acute abnormality seen. Air is present within the soft tissues from the procedure . Skin malathi are seen anteriorly. IMPRESSION: 1. Status post total knee replacement with resurfacing of the patella. ACT 112: Negative or not required by law. Electronically signed by: Jose Angel Banuelos M.D. 10/04/2021 1:56 PM
--- NOTE | 2021-10-04 14:14 | Anesthesiology Progress Note ---
Date of Service October 04, 2021 Anesthesia Post Procedure Vital Signs Vital Signs: Temp Pulse Pulse Resp BP Pulse Ox O2 Del Method 10/04/21 13:45 62 21 130/79 95 Room Air 10/04/21 14:05 36.2 C L 65 18 135/82 96 Room Air 10/04/21 13:55 64 18 121/78 95 Room Air 10/04/21 13:35 64 17 121/78 95 Room Air 10/04/21 13:15 64 22 125/75 100 Oxymask 10/04/21 13:25 62 18 134/76 100 Oxymask 10/04/21 13:07 36.3 C L 71 19 106/65 100 Oxymask 10/04/21 09:20 36.7 C 78 20 143/90 H 97 Room Air O2 Flow Rate 10/04/21 13:45 10/04/21 14:05 10/04/21 13:55 10/04/21 13:35 10/04/21 13:15 4 10/04/21 13:25 4 10/04/21 13:07 6 10/04/21 09:20 Transfer of Care Handoff Completed per policy Notes Mental Status: alert / awake / arousable and participated in evaluation Patient Amnestic to Procedure: Yes Nausea / Vomiting: adequately controlled Pain: adequately controlled Airway Patency, RR, SpO2: stable & adequate BP & HR: stable & adequate Hydration State: stable & adequate Neuraxial Anesthesia: was administered and sensory block is resolving Anesthetic Complications: no major complications apparent and Pt Satisfied with anesthetic care
[2021-10-04] MEDS ORDERED: ALUMINUM/MAGNESIUM SUSP 30 ML UDC PO PRN (15:39)
[2021-10-04] MEDS ORDERED: NALOXONE HCL 0.4 MG/1 ML VIAL/CARP IV PRN (15:39)
[2021-10-04] MEDS ORDERED: METOCLOPRAMIDE HCL INJ 5 MG/ML 2 ML VIAL IV PRN (15:39)
[2021-10-04] MEDS ORDERED: MAGNESIUM HYDROXIDE SUSP 30 ML UDC PO PRN (15:39)
[2021-10-04] MEDS ORDERED: bisacodyL 10 MG SUPP PR PRN (15:39)
[2021-10-04] MEDS ORDERED: HYDROmorphone INJ 0.5 MG/0.5 ML SYR IV PRN (15:39)
[2021-10-04] MEDS: Scopolamine CHECK PATCH PLACEMENT SCH ×2 (15:41→21:10)
[2021-10-04] MEDS: ASCORBIC ACID 500 MG TAB PO SCH (16:34)
[2021-10-04] MEDS: ACETAMINOPHEN 500 MG TAB PO SCH ×2 (16:34→21:10)
[2021-10-04] MEDS: KETOROLAC TROMETHAMINE 15 MG/ML VIAL IV SCH ×2 (16:34→20:38)
[2021-10-04] MEDS: SODIUM CHLORIDE 0.9% 1000ML 1,000 ML IV SCH (16:34)
[2021-10-04] MEDS ORDERED: TRANEXAMIC ACID / 0.7% NACL 1,000 MG/100 ML BAG IV SCH (19:15)
[2021-10-04] MEDS: oxyCODONE HCL IR 5 MG TAB (IMMEDIATE RELEASE) PO PRN ×2 (19:34→20:35)
[2021-10-04] MEDS: ceFAZolin 2000MG 2,000 MG/15 ML SYR IV SCH (19:34)
[2021-10-04] MEDS: DOCUSATE SODIUM 100 MG CAP PO SCH (20:37)
[2021-10-04] MEDS: ASPIRIN 81 MG ECTAB PO SCH (20:37)
[2021-10-04] MEDS ORDERED: SENNA 8.6 MG TAB PO SCH (21:00)
[2021-10-04] MEDS ORDERED: NON-FORMULARY MEDICATION (Glucosamine-Chondroitin 750-600 mg Tablet) PO SCH (21:00)
[2021-10-04] MEDS ORDERED: LOSARTAN/HCTZ 50/12.5MG TAB PO SCH (21:00)
[2021-10-04] MEDS ORDERED: CHOLECALCIFEROL 1,000 UNITS 25 MCG TAB PO SCH (21:00)
[2021-10-04] MEDS ORDERED: MULTIVITAMIN TAB PO SCH (21:00)
[2021-10-05] MEDS: KETOROLAC TROMETHAMINE 15 MG/ML VIAL IV SCH ×3 (02:29→17:08)
[2021-10-05] MEDS: ceFAZolin 2000MG 2,000 MG/15 ML SYR IV SCH (02:29)
[2021-10-05] MEDS: SODIUM CHLORIDE 0.9% 1000ML 1,000 ML IV SCH (02:32)
[2021-10-05] MEDS: oxyCODONE HCL IR 5 MG TAB (IMMEDIATE RELEASE) PO PRN ×2 (05:08→11:44)
[2021-10-05] MEDS: ACETAMINOPHEN 500 MG TAB PO SCH ×2 (05:08→14:40)
[2021-10-05] MEDS: Scopolamine CHECK PATCH PLACEMENT SCH ×2 (07:32→17:08)
[2021-10-05] MEDS ORDERED: dexAMETHasone 10 MG in SYRINGE 0 ML IV SCH (08:00)
--- NOTE | 2021-10-05 08:00 | Progress Notes ---
DATE OF SERVICE: 10/05/2021. SUBJECTIVE: A 66-year-old gentleman, postoperative day 1 from right knee replacement. He is doing p retty well. Having some pain, but the pain medicine has been doing well. Had a pretty good night. No chest pain or shortness of breath. Not feeling dizzy or lightheaded. OBJECTIVE: VITAL SIGNS: Temperature 37.0. Vital signs are stable. GENERAL: Shows a pleasant middle-aged male. He is sitting up in bed, looks comfortable. LUNGS: Clear to auscultation. HEART: Has a regular rate and rhythm. ABDOMEN: Soft, nontender, nondistended. EXTREMITIES: Grossly neurovascularly intact except as follows: Examination of the right leg reveals the dressing to be clean, dry and intact. Leg is well aligned. He can dorsiflex and plantarflex hi s foot appropriately. He is neurologically intact. LABORATORY DATA: Labs are pending. ASSESSMENT: A 66-year-old gentleman, postoperative day 1 from a right knee replacement, doing reason ably well. Pain is controlled. He is neurologically intact. PLAN: 1. DVT prophylaxis include thigh-high TEDs, SCDs, and aspirin twice a day. 2. PT, OT, weightbear as tolerated. Right total knee protocol. 3. Pain control, doing okay with current pain regimen. 4. Disposition: He is planning to be just discharged to home with some home health. We will see ho w he does in therapy today. Hopeful discharge after therapy. Job ID: [id number]
[2021-10-05 08:24] LABS: Hematocrit (blood only) 36.5 % (40.1-51.0); Hemoglobin 12.1 g/dl (14.0-18.0); Mean Corpuscular Hemoglobin 29.2 pg (25.0-34.0); Mean Corpuscular Hgb Conc 33.2 g/dL (32.0-36.0); Mean Platelet Volume 10.1 fL (9.4-12.4); Platelet Count 206 K/uL (130-400); RDW Coefficient of Variation 12.2 % (11.5-14.5); RDW Standard Deviation 39.1 fL (36.4-46.3); Red Blood Count 4.15 M/uL (4.63-6.08); White Blood Count 7.71 K/ul (4.8-10.8)
[2021-10-05] MEDS: ASPIRIN 81 MG ECTAB PO SCH (08:41)
[2021-10-05] MEDS: DOCUSATE SODIUM 100 MG CAP PO SCH (08:41)
[2021-10-05] MEDS: ASCORBIC ACID 500 MG TAB PO SCH ×2 (08:41→17:08)
[2021-10-05 08:42] LABS: BUN Creatinine Ratio 16.5 (10-20); Calcium 7.9 mg/dl (8.5-10.1); Creatinine Clr Calc Pharmacy 99.4 ml/min; Est GFR (African American) 104.5 ml/min; Est GFR (Non-African American) 90.2 ml/min; Potassium 3.7 mmol/L (3.5-5.1)
[2021-10-05] MEDS ORDERED: DOCUSATE SODIUM/SENNA 50/8.6MG TAB PO SCH (09:00)
[2021-10-05] MEDS ORDERED: MULTIVITAMIN TAB PO SCH (09:00)
[2021-10-05] MEDS ORDERED: TAMSULOSIN HCL 0.4 MG CAP PO SCH (09:00)
== END 2021-10-05 18:31 | disposition home health service (06) ==
LOC: ASU 08:12 → PACUINP 08:12 → 3W 15:28

== ENCOUNTER 2024-01-07 06:15 | Observation (INO) ==
--- NOTE | 2023-12-07 12:31 | PAT Medication Instructions ---
Medication Instructions Date of Service December 07, 2023 Home Medications losartan 100 mg-hydrochlorothiazide 25 mg tablet 1 tab PO HS multivitamin 1 tab PO HS acetaminophen 500 mg tablet 1,000 mg PO Q8H PRN Pain cholecalciferol (vitamin D3) 50 mcg (2,000 unit) tablet (Vitamin D3) 50 mcg PO DAILY glucosamine sulfate 750 mg tablet 750 mg PO DAILY ibuprofen 200 mg tablet 400 mg PO Q6H PRN Pain ASK your surgeon for instructions ibuprofen 200 mg tablet 400 mg PO Q6H PRN Pain DO NOT take the morning of surgery cholecalciferol (vitamin D3) 50 mcg (2,000 unit) tablet (Vitamin D3) 50 mcg PO DAILY Take morning of surgery With a small sip of water, OTHERWISE NOTHING TO EAT OR DRINK AFTER MIDNIGHT: acetaminophen 500 mg tablet 1,000 mg PO Q8H PRN Pain (if needed) Take evening before surgery losartan 100 mg-hydrochlorothiazide 25 mg tablet 1 tab PO HS multivitamin 1 tab PO HS acetaminophen 500 mg tablet 1,000 mg PO Q8H PRN Pain (if needed) Other Notes If you have any questions please call us at [phone] or [phone] or [phone] or [phone]
--- NOTE | 2023-12-11 08:15 | Anesthesiology Consultation ---
Date of Service December 11, 2023 Assessment & Plan (1) Encounter for pre-operative examination: - Infectious disease screening: Per assessment on 12/11/23: No known recent infectious disease contacts or current infectious disease symptoms. - Outpatient joint assessment: Pt currently scheduled for inpatient pathway. If surgeon requests review for outpatient joint pathway, patient is an acceptable candidate for outpatient joint program from anesthesia standpoint pending surgeon's office assessment that patient is motivated, has good support and completes Same Day Joint Program preop requirements. - S/P Right TKA (10/04/21): SAB at L3-4, 1 attempt + regional at [facility] Chart Review Chart Review: Acceptable Risk for Surgery and Patient seen in Pre Admission Testing Teaching & Discussion Pre-Anesthesia Teaching/Discussion Notes: Instructed NPO after midnight before surgery,except medications with 15 cc of water. Medication instructions provided according to the PAT guidelines. History Surgery Operation Date: 01/07/24 12:30 Proposed Procedures p Right Total Hip Arthroplasty - Marko Tabares MD Height/Weight Height: 5 ft 10 in Weight: 102.4 kg Allergies Allergy/AdvReac Type Severity Reaction Status Date / Time Opiates AdvReac Nausea Uncoded 12/11/23 08:23 Medications Home Medications Medication Instructions Recorded Confirmed Last Taken losartan 100 1 tab PO HS 01/18/19 12/07/23 05/04/22 mg-hydrochlorothiazide 25 mg tablet multivitamin 1 tab PO HS 06/21/20 12/07/23 05/04/22 acetaminophen 500 mg tablet 1,000 mg PO Q8H PRN Pain 12/07/23 12/07/23 Unknown cholecalciferol (vitamin D3) 50 50 mcg PO DAILY 12/07/23 12/07/23 Unknown mcg (2,000 unit) tablet (Vitamin D3) glucosamine sulfate 750 mg tablet 750 mg PO DAILY 12/07/23 12/07/23 Unknown ibuprofen 200 mg tablet 400 mg PO Q6H PRN Pain 12/07/23 12/07/23 Unknown Past Medical History Medical History Degenerative joint disease of right hip Dyslipidemia Hearing deficit Mild (R/L) History of melanoma Face s/p excision Hypertension Osteoarthritis Exercise / Class Metabolic Activity II 4-5 Yardwork/Stairs/Walk up hill (one FS: No CP, no SOB) Past Family History Family History Grandfather Myocardial infarction Father Prostate cancer Heart disease Hypertension Denies family history of Ovarian cancer Breast cancer Colorectal cancer Past Surgical History Surgical History History of anesthesia reaction Post-op nausea and dizziness the day after hip surgery History of colonoscopy History of tonsillectomy Hx of melanoma excision Hx of total hip arthroplasty Left FROY (07/21/20): SAB at [facility] S/P shoulder surgery Right shoulder surgery x 5 + reconstruction Status post total right knee replacement Right TKA (10/04/21): SAB at L3-4, 1 attempt + regional at [facility] Past Anesthesia History No Family Hx of Anesthesia Complications and Other (Post-op nausea and dizziness the day after hip surgery ) History of PONV No Hx of Motion Sickness and History of PONV (Nausea- improvement when anti- emetic used perioperatively) Social History Smoking Status: Never smoker Do You Dip or Chew Tobacco: No Hx Alcohol Use: Yes Alcohol type: wine alcohol intake frequency: a few times a week Hx Substance Use: No substance use type: does not use Review of Systems Patient denies chest pain, shortness of breath, dyspnea on exertion, fever, chills, cough, wheezing, palpitations. Physical Exam Vital Signs BP 169/90 P 72 TEMP 98.2 SP02 96%RA RESP 16 Physical Full cervical extension range of motion. Full TMJ range of motion. TMD > 3.5 finger breaths Mallampati Score II Dentition: + missing (side), bridge (right side upper) Lungs: clear throughout to auscultation Cardiac: regular rate and rhythm, no murmurs noted Spine: normal Carotid arteries: negative bruit Extremities: no LE edema Lab Results Anesthesia Preop Results Results Anesthesia Widget: WBC 5.00 K/ul (4.8-10.8) 12/11/23 Hgb 14.2 g/dl (14.0-18.0) 12/11/23 Hct 41.7 % (42.0-52.0) L 12/11/23 Plt 280 K/uL (130-400) 12/11/23 Na 140 mmol/L (136-145) 12/11/23 K 4.2 mmol/L (3.5-5.1) 12/11/23 Cl 103 mmol/L (98-107) 12/11/23 CO2 31 mmol/L (21-32) 12/11/23 BUN 19 mg/dl (6-23) 12/11/23 Creat 0.69 mg/dl (0.6-1.4) 12/11/23 Glucose Level 105 mg/dl (70-99(Fasting)) H 12/11/23 PT 10.8 Seconds (9.0-12.0) 12/11/23 PTT 29 Seconds (21-31) 12/11/23 INR 1.0 (0.9-1.1) 12/11/23 Blood Type B Positive 12/11/23 Antibody Screen NEGATIVE 12/11/23 Testing Electrocardiogram Date: 12/11/23 NSR at 67bpm. iRBBB. Possible inferior infarct, age undetermined. No significant change compared to 09/09/2021 per rip sawyer comparison. Chest X-Ray Date: 12/11/23 FINDINGS: Cardiomediastinal and hilar silhouettes are within normal limits. No pneumothorax, pleural effusion or airspace consolidation. Spondylitic spurring of the spine. IMPRESSION: No acute process.
--- NOTE | 2024-01-01 19:23 | History & Physical Report ---
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 This progressed over the past year. He like to have his hip fixed. Plan: Greta taken to the operating room and do a right total hip replacement. The risks Mente this procedure were explained. He understands. He is planning on being discharged to home using the the [facility] home health/physical therapy. Will plan on aspirin for DVT prophylaxis. (2) Hypertension: (3) Dyslipidemia: (4) Status post total right knee replacement: (5) Hx of total hip arthroplasty: History of Present Illness Chief Complaint: . Right hip pain Primary Care Provider: Freddy Mcneil . 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 If he is got a fairly long history of joint problems had his left hip replaced about 3 and half years ago in the right knee about the 2 years ago. Over the past 9 months he developed increased pain discomfort and stiffness in his right hip. He was initially placed on Medrol Dosepak which helped him for a brief period of time. Pain described to gotten worse. Scribes groin pain thigh pain rating down to his knee. No numbness or back type of problems. There is difficulty putting his shoes and socks on. He is happy with the left hip and would like to have his right hip replaced. Allergies Allergy/AdvReac Type Severity Reaction Status Date / Time Opiates AdvReac Nausea Uncoded 12/11/23 08:23 Home Medications Medication Instructions Recorded Confirmed Type losartan 100 1 tab PO HS 01/18/19 12/07/23 History mg-hydrochlorothiazide 25 mg tablet multivitamin 1 tab PO HS 06/21/20 12/07/23 History acetaminophen 500 mg tablet 1,000 mg PO Q8H PRN Pain 12/07/23 12/07/23 History cholecalciferol (vitamin D3) 50 50 mcg PO DAILY 12/07/23 12/07/23 History mcg (2,000 unit) tablet (Vitamin D3) glucosamine sulfate 750 mg tablet 750 mg PO DAILY 12/07/23 12/07/23 History ibuprofen 200 mg tablet 400 mg PO Q6H PRN Pain 12/07/23 12/07/23 History Past Med/Surg History Problem List Arthritis of right hip Encounter for pre-operative examination Vitamin D deficiency Hypertension Dyslipidemia Medical History Dyslipidemia Degenerative joint disease of right hip History of melanoma Face s/p excision Osteoarthritis Hearing deficit Mild (R/L) Hypertension Surgical History Hx of melanoma excision Status post total right knee replacement Right TKA (10/04/21): SAB at L3-4, 1 attempt + regional at [facility] History of anesthesia reaction Post-op nausea and dizziness the day after hip surgery Hx of total hip arthroplasty Left FROY (07/21/20): SAB at [facility] History of colonoscopy History of tonsillectomy S/P shoulder surgery Right shoulder surgery x 5 + reconstruction Family History Grandfather Myocardial infarction Father Prostate cancer Heart disease Hypertension Denies family history of Ovarian cancer Breast cancer Colorectal cancer Social History Smoking Status: Never smoker Second Hand Exposure: No; Do You Dip or Chew Tobacco: No; Hx Alcohol Use: Yes Alcohol type: wine Hx Substance Use: No Preferred Language: Arabic Communication Ability: Effective Visual Impairment: No Limitations Hearing Ability: Normal Continuous Churn Buttermaker Required: No Beliefs That Will Affect Care: None marital status: Current Living Situation: Spouse current occupational status: employed current occupation: [employer] How many Children do You have: 1 Feels Safe at Home: Yes Childhood Exposure to Second-Hand Smoke: No Dental Care, Regularly: No Physical Activity Frequency: 1-2 Times per Week Seatbelt Use: always Sunscreen Use: Yes Assistive Devices: Glasses Review of Systems All systems reviewed & are unremarkable except as noted in HPI & below. Physical Exam . Physical examination reveals a pleasant middle-age male. Looks been pretty good health. Examination of the right hip reveals the patient walks with a slight bit of a limp. He clearly favors his right side. Leg lengths appear pretty equal. He does have stiffness and pain with hip motion. Internal rotation to neutral. Negative straight leg raise. He is neurologically intact. Examination of the knee below reveals a well-healed incision. No swelling. Range of motion is 0-1 20. Constitutional WD/WN, vitals as above Respiratory normal respiratory effort, lungs clear to auscultation Cardiovascular RRR, no murmur, no edema Gastrointestinal (Abdomen) normal bowel sounds, soft, nontender, no hepatosplenomegaly Results & Data Results & Data Laboratory Results . Diagnostic Findings . X-rays of the right hip were reviewed. Shows advanced hip arthritis. He is got near complete loss of the superior joint space. Some slight cystic changes and subchondral sclerosis. That this has progressed over the past several years. PG Care Time/CCT Total # of Minutes Spent Total Time Spent with Patient: Total time spent is greater than 50% in coordination of care (as documented) at patient's floor/unit and/or counseling patient: Coding Level of Care Code None Diagnoses Arthritis of right hip M16.11 Hypertension I10 Dyslipidemia E78.5 Status post total right knee replacement Z96.651 Hx of total hip arthroplasty Z96.648
[2024-01-07] MEDS ORDERED: BUPIVACAINE 0.5 % 5 MG/1 ML PF 10ML VIAL ONE (06:20)
--- NOTE | 2024-01-07 06:39 | History & Physical Bridge Note ---
Date of Service January 07, 2024 History & Physical Bridge Note I have examined the patient, reviewed the History & Physical and in the interval since the performance of the History & Physical I have noted the following changes of clinical significance: no changes noted
[2024-01-07] MEDS: METOCLOPRAMIDE HCL 10 MG TABLET PO SCH (06:59)
[2024-01-07] MEDS: LR 500ML BOLUS, THEN 15ML/HR IV SCH (06:59)
[2024-01-07] MEDS: CeleBREX 200 MG CAP PO SCH (06:59)
[2024-01-07] MEDS: LR 60ML/HR IV SCH (06:59)
[2024-01-07] MEDS: FAMOTIDINE 20 MG TAB PO SCH (06:59)
[2024-01-07] MEDS: ACETAMINOPHEN 500 MG TAB PO SCH ×2 (07:00→14:46)
[2024-01-07] MEDS: dexAMETHasone**PF** 10 MG/ML VIAL ONE (07:05)
[2024-01-07] MEDS: DEXAMETHASONE SOD INJ 4 MG/ML VIAL IV STA (07:06)
[2024-01-07] MEDS ORDERED: MIDAZOLAM HCL 1 MG/ML 2ML VIAL ONE (07:45)
[2024-01-07] MEDS ORDERED: fentaNYL citrate PF 100 MCG/2 ML VIAL ONE (07:45)
[2024-01-07] MEDS: TRANEXAMIC ACID 1,000 MG **IV Pre-op IV SCH (08:22)
[2024-01-07] MEDS: ceFAZolin 2000MG 2,000 MG/15 ML SYR IV SCH ×2 (08:53→18:01)
[2024-01-07] MEDS: BUPIVACAINE/EPINEPHRINE 0.5% MPF 1:200,000 30 ML VIAL ONE (08:53)
[2024-01-07] MEDS ORDERED: PROPOFOL IV EMULSION 10 MG/ML 100 ML VIAL IV ONE (09:20)
[2024-01-07] MEDS ORDERED: PHENYLEPHRINE HCL 10 MG/ML VIAL ONE (09:20)
[2024-01-07] MEDS ORDERED: ePHEDrine sulfate 50 MG/5 ML SYR ONE (09:20)
[2024-01-07] MEDS ORDERED: ONDANSETRON INJ 2 MG/ML 2 ML VIAL ONE (10:01)
--- NOTE | 2024-01-07 10:24 | Operative Report ---
PG Post Operative Report Pre & Post Diagnosis Operation Date: 01/07/24 08:50 Pre-Op Diagnosis: Right Hip Degenerative Joint Disease Post-Op Diagnosis: Right Hip Degenerative Joint Disease I identified the patient and participated in the time-out.: Yes Procedure Operation Date: 01/07/24 08:50 Actual Procedures p Right Total Hip Arthroplasty, Uncemented(Right) - Marko Tabares MD Surgeon Marko Tabares MD Roll Wrapper Willy Hurtado PA-C Estimated Blood Loss 100 Findings Consistent with Post-Op Diagnosis Operative findings revealed advanced right hip DJD. He had grade 4 full- thickness cartilage loss of the femoral head and acetabulum. Moderate-sized joint effusion. Specimens Right femoral head sent for pathology. 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 He had his left hip replaced as well as his right knee. Over the past year he has developed increased pain discomfort in his right hip. X-rays show progressive hip arthritis. He elected proceed with surgical treatment. Description of Procedure Operative implants consist of: 1. Biomet G7 size 56 mm acetabular shell. 2. [place] hole maintenance tech. 3. 6.5 cancellous acetabular screws 1 at 35 mm length and 1 of 25 mm length. 4. Highly cross-linked polyethylene liner with a 56 mm outer diameter, 36 mm inner diameter with a point placed inferior and posterior. 5. DePuy Corail size 13 KLA femoral stem. 6. +5/36 mm ceramic articular ball. The patient was taken the op room, identified, placed on the operating table in the supine position. All contact areas were appropriately padded. IV antibiotics fibra anesthesia team. A spinal anesthetic had been implemented in the holding area. The patient was then placed in the left lateral decubitus position. An axillary roll was placed. A stool Birkett position was used for positioning. The right hip and leg were then prepped and draped in the usual sterile fashion. A posterior lateral approach to the right hip was then performed through a curvilinear incision centered over the greater trochanter. Sharp dissection was Through subcutaneous tissue dental of the IT band gluteal fascia. The IT band gluteal fascia was then incised longitudinally in line with skin incision. The underlying greater bursa was excised. The piriformis and external rotators along with the posterior hip joint capsule were then released from the posterior aspect the hip as a single layer. The hip was internally rotated and dislocated. Femoral neck osteotomy cut was made with Final Cut about 10 mm above the lesser trochanter. Femoral head was removed and sent for pathology. The femur was retracted anteriorly. Attention drawn to the acetabulum. The acetabular labrum was excised. The pulmonary fat was excised. Sequential reaming the acetabular exam performed again with size 47 and progressing up to 55. I reamed some with a 56 reamer and then placed a 56 mm Biomet G7 acetabular shell in about 40 degrees lateral opening and 20 degrees of anteversion. It was fixed with two 6.5 screws. Trial liner was placed. Attention drawn the femur. The proximal femur was entered with a Solx cutter followed by canal finder. I then broached beginning with size 8 and progressed up to a 13. Get excellent fitted to 13. We trialed the hip and hip was fully stable with the hip in full extension and external rotation and flexion to 9 degrees into rotation about 40 degrees. I elect to place a landry inferior and posterior to maximize the stability in flexion considering his occupation. We elect to place his implants. All trial implants were removed. An apex hole maintenance tech was placed. Highly cross-linked polyethylene liner was placed with a landry placed inferior and posterior. A size 13 KLA femoral stem was impacted in position. A +5/36 mm ceramic articular ball was placed. The hip was located once again found to be stable. Attention drawn toward closing. The wound was irrigated anton also pulsatile lavage solution. We did inject locally with 60 cc of half percent Marcaine with epinephrine. The posterior capsule and external rotators were then repaired through drill holes in the posterior trochanter with #2 Tycron suture. The IT band gluteal fascia were then closed #1 PDS suture running fashion the subcutaneous tissues then closed with 2 layers the deep layer #1 Vicryl suture and subcutaneous tissues with 2-0 Dexon suture in a buried interrupted fashion. Skin was closed skin malathi. Leg was then cleaned and dried a sterile dressing was Xeroform, 4 fours, ABD pad and foam tape was applied. The patient then transferred to the recovery room in stable condition. Patient tolerated the procedure well and there were no complications. Willy Hurtado, my physician community program assistant, was present for the entire procedure. His assistance was essential and required for appropriate patient positioning, prepping and draping, surgical exposure, performing the technical details of the operation, placement the implants, closure of the wound, and placement of the sterile bandage. I attest to the content of the Intraoperative Record and any orders documented therein. Any exceptions are noted below.
[2024-01-07] MEDS ORDERED: ATROPINE SULFATE 0.1 MG/ML 10ML SYR IV PRN (10:36)
[2024-01-07] MEDS ORDERED: fentaNYL citrate PF 100 MCG/2 ML VIAL IV PRN (10:36)
[2024-01-07] MEDS ORDERED: ONDANSETRON INJ 2 MG/ML 2 ML VIAL IV PRN ×2 (10:36→11:56)
[2024-01-07] MEDS ORDERED: HYDROmorphone INJ 2 MG/ML SYR/VIAL IV PRN (10:36)
[2024-01-07] MEDS ORDERED: PROMETHAZINE HCL 6.25 MG in SODIUM CHLORIDE 0.9% 50 ML IV PRN (10:36)
[2024-01-07] MEDS ORDERED: ePHEDrine sulfate 50 MG/ML AMP IV PRN (10:36)
--- NOTE | 2024-01-07 11:42 | Anesthesiology Progress Note ---
Date of Service January 07, 2024 Anesthesia Post Procedure Vital Signs Vital Signs: Temp Pulse Pulse Resp BP BP Pulse Ox 01/07/24 11:23 36.4 C L 91 H 18 159/79 H 95 01/07/24 11:10 85 16 152/81 H 96 01/07/24 11:00 36.7 C 90 18 133/84 95 01/07/24 10:50 90 22 132/75 98 01/07/24 10:40 91 H 16 132/77 96 01/07/24 10:30 91 H 12 131/76 97 01/07/24 10:20 94 H 18 124/80 94 01/07/24 10:12 36.7 C 95 H 18 147/87 H 95 01/07/24 06:40 36.4 C L 71 18 167/98 H 99 O2 Del Method 01/07/24 11:23 Room Air 01/07/24 11:10 Room Air 01/07/24 11:00 Room Air 01/07/24 10:50 Room Air 01/07/24 10:40 Room Air 01/07/24 10:30 Room Air 01/07/24 10:20 Room Air 01/07/24 10:12 Room Air 01/07/24 06:40 Room Air Pain Intensity Right Hip: Pain Intensity: 3 Transfer of Care Handoff Completed per policy Notes Mental Status: alert / awake / arousable and participated in evaluation Patient Amnestic to Procedure: Yes Nausea / Vomiting: adequately controlled Pain: adequately controlled Airway Patency, RR, SpO2: stable & adequate BP & HR: stable & adequate Hydration State: stable & adequate Anesthetic Complications: no major complications apparent
--- NOTE | 2024-01-07 11:47 | XRay Report ---
XR hip 1V RT w pelvis HISTORY: 68 years-old Male IN PACU - Post Surgical COMPARISON: Hip radiographs 10/29/2023 TECHNIQUE: AP view of the pelvis with crosstable lateral view of the right hip FINDINGS: Unchanged left hip arthroplasty. Satisfactory positioning of the right hip arthroplasty without acute fracture. Lateral skin malathi with expected postoperative soft tissue swelling and deep tissue air. IMPRESSION: Right hip arthroplasty with expected postoperative changes. ACT 112: Negative or not required by law. The above report was generated using voice recognition software. It may contain grammatical, syntax o r spelling errors. Electronically signed by: John Benoit M.D. 01/07/2024 11:46 AM
[2024-01-07] MEDS ORDERED: METOCLOPRAMIDE HCL INJ 5 MG/ML 2 ML VIAL IV PRN (11:56)
[2024-01-07] MEDS ORDERED: HYDROmorphone INJ 0.5 MG/0.5 ML SYR IV PRN (11:56)
[2024-01-07] MEDS ORDERED: MAGNESIUM HYDROXIDE SUSP 30 ML UDC PO PRN (11:56)
[2024-01-07] MEDS ORDERED: ALUMINUM/MAGNESIUM SUSP 30 ML UDC PO PRN (11:56)
[2024-01-07] MEDS ORDERED: bisacodyL 10 MG SUPP PR PRN (11:56)
[2024-01-07] MEDS ORDERED: NALOXONE HCL 0.4 MG/1 ML VIAL/CARP IV PRN (11:56)
[2024-01-07] MEDS: KETOROLAC TROMETHAMINE 15 MG/ML VIAL IV SCH (12:12)
[2024-01-07] MEDS: traMADol HCL 50 MG TABLET PO PRN (12:51)
[2024-01-07] MEDS ORDERED: ACETAMINOPHEN 500 MG TAB PO SCH (14:00)
[2024-01-07 14:45] VITALS: RESP 18; TEMP 97.5
[2024-01-07] MEDS: TRANEXAMIC ACID / 0.7% NACL 1,000 MG/100 ML BAG IV SCH (17:42)
[2024-01-07] MEDS: ASCORBIC ACID 500 MG TAB PO SCH (17:46)
[2024-01-07] MEDS: LOSARTAN/HCTZ 50/12.5MG TAB PO SCH (19:55)
[2024-01-07] MEDS: ASPIRIN 81 MG ECTAB PO SCH (19:56)
[2024-01-07] MEDS: SENNA 8.6 MG TAB PO SCH (20:02)
[2024-01-07] MEDS: DOCUSATE SODIUM 100 MG CAP PO SCH (20:02)
[2024-01-07] MEDS ORDERED: NON-FORMULARY MEDICATION (Multivitamin Tablet) PO SCH (21:00)
[2024-01-07] MEDS ORDERED: NON-FORMULARY MEDICATION (Amino Acids [Amino Acid] Capsule) PO SCH (21:00)
[2024-01-07] MEDS ORDERED: SENNA 8.6 MG TAB PO SCH (21:00)
[2024-01-08 07:06] LABS: BUN Creatinine Ratio 25.6 (10-20); Calcium 8.5 mg/dl (8.6-10.3); Creatinine Clr Calc Pharmacy 101.3 ml/min
[2024-01-08 07:12] LABS: Basophils # (auto) 0.02 K/uL (0.00-0.20); Basophils % (auto) 0.2 %; Eosinophils # (auto) 0.06 K/uL (0.00-0.50); Eosinophils % (auto) 0.6 %; Hemoglobin 11.6 g/dl (14.0-18.0); Immature Granulocytes # (auto) 0.04 K/uL (0.01-0.20); Immature Granulocytes % (auto) 0.4 %; Lymphocytes # (auto) 0.97 K/uL (1.20-3.40); Lymphocytes % (auto) 8.9 %; Mean Corpuscular Hemoglobin 28.8 pg (25.0-34.0); Mean Corpuscular Hgb Conc 33.1 g/dL (32.0-36.0); Mean Corpuscular Volume 86.8 fL (80.0-100.0); Mean Platelet Volume 10.3 fL (9.4-12.4); Monocytes # (auto) 1.03 K/uL (0.11-0.59); Monocytes % (auto) 9.5 %; Neutrophils # (auto) 8.76 K/uL (1.40-6.50); Neutrophils % (auto) 80.4 %; Platelet Count 225 K/uL (130-400); RDW Coefficient of Variation 12.5 % (11.5-14.5); RDW Standard Deviation 40.2 fL (36.4-46.3); Red Blood Count 4.03 M/uL (4.70-6.10); White Blood Count 10.88 K/ul (4.8-10.8)
[2024-01-08 07:41] VITALS: BP 147/78; PULSE 66; O2SAT 96
[2024-01-08] MEDS: dexAMETHasone 10 MG in SYRINGE 0 ML IV SCH (08:13)
[2024-01-08] MEDS: CHOLECALCIFEROL 25 MCG (1000 UNITS) TAB PO SCH (08:16)
[2024-01-08] MEDS: TAMSULOSIN HCL 0.4 MG CAP PO SCH (08:16)
[2024-01-08] MEDS: MULTIVITAMIN TAB PO SCH (08:17)
[2024-01-08] MEDS ORDERED: GLUCOSAMINE SULFATE 750 MG PO SCH (09:00)
--- NOTE | 2024-01-08 09:03 | Orthopedic Progress Note ---
Date of Service January 08, 2024 Assessment & Plan (1) Status post right hip replacement: Plan: 68-year-old gentleman postop day 1 from right hip replacement doing pretty well. Pains controlled. Hips located. He is neurologically intact. Plan: 1. DVT prophylaxis including thigh-high teds, SCDs, aspirin twice a day. 2. PT/OT. Weight-bear as tolerated. Right total hip protocol. 3. Pain control. Doing okay with current pain regimen. 4. Disposition. Plan is to discharge to home with some home health today if he does okay in therapy. (2) Hypertension: (3) Dyslipidemia: Admission and Anticipated Discharge Date Admission Date: January 07, 2024 Subjective 68-year-old gentleman postop day 1 from a right hip replacement. He is doing pretty well. Had a reasonable night. Pains controlled. No chest pain or shortness of breath. Not feeling dizzy or lightheaded. Physical Exam Physical Exam: Physical exam shows a pleasant middle-age male. He is sitting on bed and looks pretty comfortable this morning. Examination of the right hip and leg reveals leg to be well aligned. Dressings clean dry and intact. Thigh is soft and supple. He can dorsiflex and plantarflex his foot appropriately. Respiratory: normal respiratory effort, lungs clear to auscultation Cardiovascular: RRR, no murmur, no edema Gastrointestinal (Abdomen): normal bowel sounds, soft, nontender, no hepatosplenomegaly Results & Data Vital Signs (Past 12 Hours) Vital Signs Temp Pulse Resp BP BP Pulse Ox O2 Del Method 01/08/24 07:38 36.4 C L 66 18 147/78 H 96 Room Air 01/08/24 03:18 36.4 C L 78 18 167/77 H 95 Room Air 01/07/24 23:47 36.4 C L 79 18 157/83 H 95 Room Air Laboratory Results Hemoglobin is 11.6. Hematocrit is 35.0. Electrolytes are stable.
--- NOTE | 2024-01-10 07:40 | Discharge Summary ---
Date of Service January 10, 2024 Admission HPI (Per Admitting) . 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 If he is got a fairly long history of joint problems had his left hip replaced about 3 and half years ago in the right knee about the 2 years ago. Over the past 9 months he developed increased pain discomfort and stiffness in his right hip. He was initially placed on Medrol Dosepak which helped him for a brief period of time. Pain described to gotten worse. Scribes groin pain thigh pain rating down to his knee. No numbness or back type of problems. There is difficulty putting his shoes and socks on. He is happy with the left hip and would like to have his right hip replaced. Admission Exam (Per Admitting) . Physical examination reveals a pleasant middle-age male. Looks been pretty good health. Examination of the right hip reveals the patient walks with a slight bit of a limp. He clearly favors his right side. Leg lengths appear pretty equal. He does have stiffness and pain with hip motion. Internal rotation to neutral. Negative straight leg raise. He is neurologically intact. Examination of the knee below reveals a well-healed incision. No swelling. Range of motion is 0-1 20. Principal Diagnosis Same as "Discharge Diagnosis" noted below under Discharge Instructions. Discharge Data Procedures Performed Operation Date: 01/07/24 08:50 Actual Procedures p Right Total Hip Arthroplasty, Uncemented(Right) - Marko Tabares MD Hospital Course (1) Status post right hip replacement: This is a 68 year old patient admitted on 01/07/24 and underwent total hip arthroplasty. He tolerated the procedure well and there were no complications. Transferred to the PACU post op and later to the orthopedic floor for further care. He was given ancef for antibiotic prophylaxis. He was also given CURLY stockings, SCDs, and aspirin for DVT prophylaxis. Hemoglobin, hematocrit, and vital signs were monitored during his hospital stay and remained stable. Did not require any blood transfusions. There were no complications during his hospital stay. By post op day #1 the patient was tolerating a regular diet, pain was reasonably controlled with oral pain medicine, and he was participating in physical therapy. On post op day #1 the patient was discharged home and set up with home health care. He was given printed discharge instructions including prescriptions for extra strength tylenol, aspirin, ketorolac, zofran, senokot, tramadol, and flomax. Continue hip precautions. Continue physical therapy, weight bearing as tolerated. Continue CURLY stockings. Follow up approximately 2 weeks post op or sooner if there are problems or concerns. PG Care Time/CCT Total # of Minutes Spent Total Time Spent with Patient: : Discharge Plan Discharge Items Patient Disposition: Home - Home Health Services Reason For Visit: Right Hip Osteoarthritis Discharge Diagnosis: Right Hip REplacement Activity: Per Instructions section Activity Comment: Follow/obey hip precautions at all times. Weightbearing: Full weightbearing Weightbearing Comment: Weightbear as tolerated obeying hip precautions at all times. Non-emergency contact: Surgeon Call non-emergency contact if: you have any medication questions Follow-up/Referrals: Freddy Mcneil [Primary Care Provider] - Diet: Regular Addtl Attending Provider Instructions: ACTIVITY RECOMMENDATIONS: Diet: * You may resume previous diet. Physical Therapy: * Aggressive physical therapy is not usually needed. You will learn to take care of yourself safely and walk. * Follow the "Hip Precautions Instructions." * In some cases, the child protective services social worker at the hospital will arrange to have a therapist come to your house for the first couple of weeks to help you learn these skills. * You need to practice on your own or with the help of a family member as needed. * When you learn these skills, most of the therapy can be done on your own. Home Exercise: * You were shown a series of exercises in the hospital. Do these exercises three to four times each day including the exercises you were shown in physical therapy. Walking: * Get up and walk several times each day. For the first four weeks, try not to stand or walk for more than one hour at a time. If you do stand or walk for more than one hour, you will not hurt anything, but your leg will likely swell. * As you feel comfortable, you may change from the walker or crutches to a cane and then to independent walking. MEDICATIONS: New Medicine: * You will likely be taking one or more of these medicines: 1. Tramadol - Take, as directed, when you need it, every six hours to control your pain. 2. Aspirin - Thins your blood to lessen the chance of forming a blood clot. * The most common side effects of pain medicine and iron are nausea and const ipation. If nausea or constipation is too much of a problem or if you have any questions about your new medicines or doses, call [facility] at . We will try to help you manage these issues. "VERY IMPORTANT TO READ AND REVIEW" Pain: * The immediate post-operative period after hip replacement surgery is often quite painful. * You are given a prescription for pain medicine. You should take it, as directed, when you need it, especially before physical therapy and before going to bed. Pain that interferes with sleep is very common and can last several months. * You will likely need pain medicine for the first two to four weeks. It will not stop all of the pain. The pain will lessen and as you feel better, you may change to milder pain medicine such as Tylenol. * The most common side effects of pain medicine are nausea and constipation, so don't take more than you need. SPECIAL CARE INSTRUCTIONS: TEDs/Elastic Stockings: * The white elastic stockings help limit swelling and prevent blood clots from forming in your legs. The more you wear them, the more they work. * Wear them for six weeks. Incision Site Care: * Remove dressing postoperative day 2 and then shower. Keep direct shower pressure off the incision site. * After showering, cover cedrick with dry gauze and change daily or more frequently if the dressing is getting saturated with drainage. * May completely stop using bandage if wound is dry and no drainage * Cedrick are removed between 2 and 3 weeks post-op. If your follow-up appointment is made before 2 weeks, please have your appointment re- scheduled. It is too early to remove the cedrick. Prevention of Infection: * Take antibiotics one hour before any dental cleaning, dental work, urological procedure, gastrointestinal procedure or any invasive surgery in order to prevent your new joint from getting infected. * You may get the antibiotics from the doctor performing the procedure or you may call our office at before and we will call in a prescription to the pharmacy of your choice. Things to Watch For: * Drainage from the incision site that occurs more than one week after your surgery. * Severely increased leg pain or swelling. * Increased redness at the incision site. * Fever above 102 degrees Fahrenheit. * Unusual chest pain or shortness of breath. * Unusual pain or burning with urination. Call [facility] at with any of the above problems or if you have any questions about your medicines or recovery. FOLLOW UP VISIT: Make an appointment to see your doctor for approximately two weeks after surgery for a progress check and staple removal by calling the office at . Pending Studies at Discharge: No Stand-Alone Forms: My [facility], Smoking Cessation Medications and DC Order Prescriptions: Continued tramadol 50 mg tablet 50 - 100 mg PO Q6 PRN (Reason: pain) Qty: 40 0RF Rx Instructions: Take as needed for pain ondansetron 4 mg tablet,disintegrating 4 mg PO Q8 PRN (Reason: nausea) Qty: 20 1RF Rx Instructions: Take as needed for nausea ketorolac 10 mg tablet 10 mg PO Q6 5 Days Qty: 20 0RF Rx Instructions: Take 4 times per day with food for 5 days to lessen pain and swelling. sennosides [Senokot] 8.6 mg tablet 8.6 mg PO BID 14 Days Qty: 28 0RF Rx Instructions: Take two times a day to prevent/treat constipation acetaminophen [Tylenol Extra Strength] 500 mg tablet 1,000 mg PO TID 30 Days Qty: 180 0RF Rx Instructions: Take 3 times per day to lessen pain. aspirin [Melvi Low Dose Aspirin] 81 mg tablet,delayed release (DR/EC) 81 mg PO BID 45 Days Qty: 90 0RF Rx Instructions: Take to prevent blood clots. tamsulosin [Flomax] 0.4 mg capsule 0.4 mg PO DAILY Qty: 7 0RF Rx Instructions: Begin night BEFORE surgery to prevent urinary retention losartan-hydrochlorothiazide [Hyzaar] 100-25 mg tablet 1 tab PO HS multivitamin Tablet 1 tab PO HS glucosamine sulfate 750 mg Tablet 750 mg PO DAILY cholecalciferol (vitamin D3) [Vitamin D3] 50 mcg (2,000 unit) Tablet 50 mcg PO DAILY Amino Acid Capsule 3 cap PO BID Discontinued acetaminophen [Tylenol Ex Str Rapid Release] 500 mg Tablet 1,000 mg PO Q8H PRN (Reason: Pain) ibuprofen 200 mg Tablet 400 mg PO Q6H PRN (Reason: Pain) Krames/Other Patient Handouts: Hip Replace Home Recovery Admission Data Admit Date/Time: 01/07/24 10:17 Attending Provider: Marko Tabares Admit Provider: Marko Tabares Primary Care Provider: Freddy Mcneil Other Interventions: Discharge Summary Assessment (RN) Last Done: 01/08/24 10:15
== END 2024-01-08 12:39 | disposition home health service (06) ==
LOC: 3E 06:15 → ASU 06:15